=== PATIENT | female | born 1965 | race Caucasian/White ===

== ENCOUNTER 2017-04-18 10:00 | Outpatient (RCR) | payer BC, SELFPAY ==
--- NOTE | 2017-03-04 13:35 | HP.PTEVAL_ITS ---
Patient's Visit Information JOCELIN BEAN is a 52 year old F referred to Physical Therapy by MD YOBANI Mclaughlin with a diagnosis of B shoulder strain.. Date of Evaluation: 03/04/17 Physical Therapist: PETTY MontemayorT, OC - Visit Plan Frequency: 3x /Week Duration: 2-4 Weeks Plan: 3x/week for 2-4 weeks for... 1. STM to post shoulders and cervical mm. 2. postural and cervical strength adn shoulder strength and end range of motion. 3. Monitor tolerance to increasing c/s ext as it effects shoulder elevation, L rotation adn shoulder pain. MH as needed to neck. - Subjective Subjective: Slipped in snow over a month ago and face planted with something in her arms. Shoulders have been bothering her since. Pain is L lateral adn R superior posterior. L>R. Sleep is interrupted as she cannot lie on L side due to pain. Neck gets stiff also. Cleaning houses which aggravates it. Basic aDLs are OK it is just like a toothache. Hurts her to drive. Dressing can be painful but i do it Reaching up or out and mopping. - Pain L shoulder pain lateral Pain Intensity (Out of 10): 2 Pain Intensity Range: 2, 7 R shouldr Pain Intensity (Out of 10): 2 Pain Intensity Range: 2, 7 - Objective Posture is forward head and prtotracted adn elevated scapula. UE AROM WNL , end range L shoulder flexion pain at 120 and slow. S/C aROM is 70 ext with pain end range, R rot 75, L rot 65 and pinch at end in L scap. reflexes bi and tri 2/3. sensation UE WNL to gross light touch. Strength UE 4/5 except flexion painful B at 4-/5. c/s compression + with L rotation also. - ext rot lag test, - HK and neer impingement. - labral test. B shoulders. Tender in UT and post delt mildly B. no point tenderness to RC tissues or joint line structures in either shoulder. Repeated ret NE. repeated c/s ext improves L UE arm elevation. repeated L c/s rot with OP... NE. - Goals Goal 1:: Full c/s and UE AROM without pain Goal Time Frame: 2-4 Weeks Goal 2:: Pt feel pain is 1/10 at worst and only in neck Goal Time Frame: 2-4 Weeks Goal 3:: Pt feel 90% better as before her fall Goal Time Frame: 2-4 Weeks Goal 4:: Work and get dressed without noticing shoulder pain. Goal Time Frame: 2-4 Weeks Goal 5:: Sleep without waking when rolling on L side Goal Time Frame: 2-4 Weeks - Rehabilitation Potential Physical Therapy Diagnosis: c/s derangement vs shoulder strain. Rehabilitation Potential: Fair - Anticipated Interventions Patient/Client Instruction: Educate patient on: Condition, Plan of Care For the Purpose of:: To decrease pain, To increase ROM, To improve nutrient delivery to tissue, To increase oxygenation perfusion, To improve muscle performance and motor function Therapeutic Exercise to Include: Strength training, Flexibilty training, Passive ROM, Active ROM, Natali Exercises For the Purpose of:: To decrease pain, To increase ROM, To improve nutrient delivery to tissue, To improve muscle performance and motor function, To improve ability of physical actions for home/community/work/leisure Manual Therapy Techniques to Include: Soft tissue mobilization Comment: c/s For the Purpose of:: To decrease pain, To increase ROM Thermo therapy (hot pack): Yes For the Purpose of:: To improve nutrient delivery to tissue Thank you for the opportunity to evaluate your patient. For Medicare and Medicare HMO plans, please review the plan of care and approve it. It will need to be FAXED BACK to us at [phone] for Medicare purposes. Please let me know if there are questions or concerns regarding this plan of care. Physician Signature: Date:
--- NOTE | 2017-04-18 10:27 | HP.PTDCSUM_ITS ---
HP - PT D/C Summary It has been my pleasure to treat JOCELIN BEAN under orders from Jessenia Mendoza MD, for the diagnosis of B shoulder strain. for a total of 7 visit(s) . Discharge Date: 04/18/17 Please see the following information for a summary of their discharge status. - Subjective Subjective: Don't notice shoulder as bothering her as much. Last pain was last week. Started new ex. Sleep is OK, may wake up if lies on L side. Activities at home and work. No f/u scheduled with Dr. Meza. - Pain L shoulder pain lateral Pain Intensity (Out of 10): 0 R shouldr Pain Intensity (Out of 10): 0 c-spine Pain Intensity (Out of 10): 0 - Overall Improvement % Improvement: 90 - Objective Objective/Function: Full aROM, strength 4+/5 B shoulder without pain. Some discomfort at end range of IR improved after stretching. OVERALL DOING EXCELLENT AND WILL CONTINUE VIA HEP - Goals Goal 1:: Full c/s and UE AROM without pain Goal 2:: Pt feel pain is 1/10 at worst and only in neck Goal Progress: Progressing Goal 3:: Pt feel 90% better as before her fall Goal Progress: Goal Met Goal 4:: Work and get dressed without noticing shoulder pain. Goal Progress: Progressing Goal 5:: Sleep without waking when rolling on L side Goal Progress: Progressing - Plan Plan: d/c TO hep - D/C Information Discharge Comments: Pt working nicely toward goals and will continue via HEP. Will contact doctor if condition does not continue to improve. If there are questions or concerns regarding this patient's physical therapy, please feel free to call me at [phone]. Thank you for the referral of this patient. Sincerely, Luke Mcpherson, DPT, OC
== END 2017-04-18 19:00 | disposition home or self-care (01) ==
LOC: PT 10:00
PROVIDERS: Family Provider Family Medicine; PCP Family Medicine; Visit Provider Family Medicine
DX: S46.912D Strain of unspecified muscle, fascia and tendon at shoulder and upper arm level, left arm, subsequent encounter (principal); S46.911D Strain of unspecified muscle, fascia and tendon at shoulder and upper arm level, right arm, subsequent encounter
CPT/HCPCS: 97110; 97140; 97162; 97530

== ENCOUNTER → 2017-05-25 10:37 | Outpatient (CLI) | payer BC, SELFPAY ==
[2017-05-31 12:19] LABS: HPV Reflexed? NOT INDICATED
== END ==
PROVIDERS: Visit Provider Obstetrics & Gynecology
DX: Z01.419 Encounter for gynecological examination (general) (routine) without abnormal findings (principal)
CPT/HCPCS: 88175; G0145

== ENCOUNTER → 2017-08-01 10:04 | Outpatient (CLI) | payer BC, SELFPAY ==
[2017-08-01 12:27] LABS: Absolute Lymphocyte Count 1.62 X10^3/ul (0.83-4.51); Absolute Neutrophil Count 3.3 X10^3/uL (2.0-7.7); Basophil# 0.03 X10^3/uL; Basophil% 0.5 % (0-1); Eosinophil# 0.17 X10^3/uL; Hematocrit 41.5 % (37-47); Hemoglobin 13.7 g/dl (12.0-15.0); Lymphocyte # 1.62 X10^3/ul (4.0); Lymphocyte % 28.2 % (19-41); Mean Corpuscular Hgb 29.3 pg (27.0-32.0); Mean Corpuscular Volume 88.9 fL (81-99); Mean Platelet Vol. 8.8 fl (6.2-12.0); Monocyte# 0.65 X10^3/uL; Monocyte% 11.3 % (0-10); Neutrophil # 3.25 X10^3/uL (2.7-7.7); Neutrophil % 56.7 % (47-70); Platelet Count 287 K/mm3 (150-450); RBC Distribution Width CV 12.1 % (11.6-14.6); RBC Distribution Width SD 38.8 fl (35.1-43.9); Red Blood Count 4.67 M/mm3 (4.2-5.4); White Blood Count 5.7 K/mm3 (4.4-11.0)
[2017-08-01 12:33] LABS: POSITIVE COUNT NO; POSITIVE DIFFERENTIAL NO; POSITIVE MORPHOLOGY NO
[2017-08-01 12:41] LABS: AST(SGOT) 18 U/L (15-37); Alanine Aminotransfer ALT/SGPT 24 U/L (13-56); Albumin, Serum 3.6 g/dL (3.2-5.0); Alkaline Phosphatase 76 U/L (45-117); Anion Gap 7 (5-15); BUN 12 mg/dL (7-18); BUN/Creat Ratio 15.2 RATIO (10-20); Calcium,Total 8.9 mg/dL (8.5-10.1); Chloride 105 mmol/L (98-107); Creatinine, Serum 0.79 mg/dL (0.55-1.02); EST Glomerular Filtration Rate 81 mL/min (>60); Est Glom Filt Rate - Afr Amer 99 mL/min (>60); Globulin 3.7 g/dL (2.2-4.2); Glucose 97 mg/dL (74-106); Potassium 3.6 mmol/L (3.5-5.1); Protein, Total 7.3 g/dL (6.4-8.2); Sodium Level 143 mmol/L (136-145); Thyroid Stim Hormone (TSH) 2.58 uIU/mL (0.358-3.74)
== END ==
PROVIDERS: Family Provider Family Medicine; PCP Family Medicine; Visit Provider Family Medicine
DX: E83.42 Hypomagnesemia (principal); R53.83 Other fatigue
CPT/HCPCS: 36415; 80053; 83735; 84443; 85025

== ENCOUNTER → 2017-09-13 16:39 | Outpatient (CLI) | payer OTHER, SELFPAY ==
--- NOTE | 2017-09-13 16:42 | CT_ITS ---
STUDY: CT ABDOMEN AND PELVIS WITH CONTRAST REASON FOR EXAM: Female, 52 years old. Right-sided abdominal pain RADIATION DOSAGE (If Supplied By Facility): CTDIvol = ( 14.64 ) mGy, DLP = ( 922.13 ) mGycm TECHNIQUE: Transaxial images were obtained from the dome of the diaphragm to the symphysis pubis with oral contrast. 100mL ml of Isovue 300 contrast was administered. Sagittal and coronal images were reconstructed. Individualized dose optimization techniques were used for this CT. COMPARISON: None. FINDINGS: The visualized lung bases are unremarkable. The visualized portions of the heart are within normal limits. Hypoattenuated lesions are scattered throughout the liver. Gallbladder surgically absent. No biliary duct dilatation. Normal spleen. Normal pancreas. Normal bilateral adrenal glands. 2 mm calculus in the mid right renal pelvis. No hydronephrosis.. Normal left kidney. Normal bilateral ureters. Normal visualized stomach. Normal small intestine. Normal colon. The appendix is visualized and appears normal. Normal abdominal aorta. Normal inferior vena cava. Normal retroperitoneum. Normal urinary bladder. Calcified fibroids within the posterior fundus of the uterus. Bilateral adnexa are normal. Small fat-containing umbilical hernia. Mild to moderate multilevel degenerative change of the spine. CT/Abdomen/Pelvis WITH Contrast IMPRESSION: 1. Myomatous uterus. 2. Nonobstructing 2 mm mid right renal calculus. 3. Small fat-containing umbilical hernia. 4. Cysts versus hemangiomas scattered throughout the liver. Electronically Signed: Ino Cheney MD at 4:03 EDT Tel , Service support ,
== END ==
PROVIDERS: Family Provider Family Medicine; PCP Family Medicine; Visit Provider Family Medicine
DX: N20.0 Calculus of kidney (principal); K42.9 Umbilical hernia without obstruction or gangrene
CPT/HCPCS: 74177; Q9967

== ENCOUNTER → 2017-09-16 14:15 | Outpatient (CLI) | payer OTHER, SELFPAY ==
--- NOTE | 2017-09-16 14:18 | BI_ITS ---
MAMMOGRAPHY - BILATERAL SCREENING 3-D IRIS SYNTHESIS REASON FOR EXAM: Female, 52 years old. Bilateral Screening 3-D tomosynthesis PERTINENT HISTORY: Family breast carcinoma, paternal grandmother and aunt. TECHNIQUE: 2-D mammograms and 3-D Iris synthesis of the breast (s) were performed. CAD was performed. COMPARISON: 09/06/2016 through 11/06/2013. FINDINGS: The breast composition is composed of scattered fibroglandular density. No new significant architectural distortion, asymmetric density, abnormal microcalcification cluster, dominant mass, adenopathy, skin thickening or nipple retraction identified. Coarse benign-appearing calcifications. No significant abnormality identified with tomosynthesis. BI/SCREENING MAMM (CAD), BILAT IMPRESSION: No mammographic sign of malignancy. Routine yearly mammograms recommended. ASSESSMENT CATEGORY: BIRADS Category 2: Benign. A letter regarding these results will be sent to the patient by the facility within 30 days. FOLLOW UP RECOMMENDATION: Yearly follow up mammogram recommended. (A) Negative results should not deter biopsy as a palpable lesion if present should be followed on clinical grounds and biopsy performed if clinically persistent for 3 months or increasing size. Approximately 10% of breast cancers are not detected by mammography. A normal mammogram should not delay biopsy of a clinically suspicious abnormality. Electronically Signed: Mark Antony, at 21:44 EDT Tel , Service support ,
== END ==
PROVIDERS: Family Provider Family Medicine; PCP Family Medicine; Visit Provider Obstetrics & Gynecology
DX: Z12.31 Encounter for screening mammogram for malignant neoplasm of breast (principal)
CPT/HCPCS: 77063; 77067

== ENCOUNTER → 2018-07-12 11:06 | Outpatient (CLI) | payer OTHER, SELFPAY ==
[2018-07-18 09:36] LABS: HPV Reflexed? NOT INDICATED
== END ==
PROVIDERS: Visit Provider Obstetrics & Gynecology
DX: Z12.4 Encounter for screening for malignant neoplasm of cervix (principal)
CPT/HCPCS: 88175; G0145

== ENCOUNTER → 2019-01-01 13:50 | Outpatient (CLI) | payer OTHER, SELFPAY ==
--- NOTE | 2019-01-01 13:55 | RAD_ITS ---
STUDY: X-RAY - LEFT KNEE REASON FOR EXAM: Female, 53 years old. Pain. TECHNIQUE: 4 view(s) of the knee. COMPARISON: None. FINDINGS: Normal visualized distal femur. Normal visualized proximal tibia and fibula. Normal proximal tibiofibular articulation. There is no demonstrated fracture. Normal medial femorotibial compartment. Normal lateral femorotibial compartment. Normal patellofemoral articulation. There is no demonstrated joint effusion. The soft tissue structures are unremarkable. RAD/Knee 4 or More Views IMPRESSION: Normal x-ray examination of the knee. Electronically Signed: Meri Carrero MD at 2:31 EST , Service support ,
== END ==
PROVIDERS: Family Provider Family Medicine; PCP Family Medicine; Referring Provider Family Medicine; Visit Provider Family Medicine
DX: M25.562 Pain in left knee (principal)
CPT/HCPCS: 73564

== ENCOUNTER 2019-07-31 16:12 | Emergency (ER) | payer OTHER, SELFPAY ==
[2019-07-31 16:13] VITALS: BP 158/81; PULSE 83; RESP 11; TEMP 37.1; O2SAT 99; BMI 32.4
[2019-07-31 16:17] VITALS: BP 158/81; PULSE 80; RESP 13; O2SAT 98
--- NOTE | 2019-07-31 16:35 | EKG12_ITS ---
Test Reason : SYNCOPE Blood Pressure : / mmHG Vent. Rate : 079 BPM Atrial Rate : 079 BPM P-R Int : 148 ms QRS Dur : 090 ms QT Int : 354 ms P-R-T Axes : 005 036 011 degrees QTc Int : 405 ms Normal sinus rhythm Normal ECG Confirmed by ABEL CHANG, JONES ([id number]), senior editor ODELL BEAN ([id number]) on 08/03/2019 11:08:37 AM Referred By: MIKE Confirmed By:JONES ROMAN MD
--- NOTE | 2019-07-31 16:36 | ED.VIS.GEN ---
History of Present Illness Chief Complaint: Syncope Informant: Patient Onset: Today Context: Sudden Onset Narrative: Is a 54-year-old female that denies any significant past medical history presenting after an episode of lightheadedness, nausea, sweating and chest tightness. Patient states she was watching her 4 grandchildren outside and sitting in the shade. She been outside for approximately 1 hour. She went to unbuckle her youngest grandchild from the stroller so that she could change a diaper when she suddenly felt very lightheaded and felt like she would fall. She started sweating having nausea, shortness of breath, chest tightness and tingling all over her body. She went inside. The episode lasted for 15 to 20 minutes. She states she still feels nauseous and does not feel quite right as well as weak. Patient states she felt fine earlier today. She did wake up at 4:30 AM so she was a little tired today but nothing unusual. She states she is never had any like this before. She denies any family history of cardiac disease especially at a young age. She denies any other complaints at this time. She currently denies any chest tightness. Prior similar symptoms: No Past Medical History - Allergies and Home Meds Allergies/Adverse Reactions: Allergies prednisone Allergy (Verified 07/31/19 16:13) Other shellfish derived Allergy (Verified 07/31/19 16:13) Itching Primary Care Physician: Luke Meza MD [Primary Care Provider] - Past Medical History: - - Anxiety Surgical History: no surgical history Lives: With Family Smoking Status: Former smoker Alcohol: None Drugs: None Review of Systems General: Reports: Malaise, Sweats, - - Lightheaded. Denies: Chills, Fever Eyes: Denies: Visual changes - bilaterally, Diplopia ENT: Denies: Rhinorrhea, Sore throat Cardiovascular: Reports: Chest pain. Denies: Palpitations Respiratory: Denies: Dyspnea, Cough, Dyspnea on exertion Gastrointestinal: Reports: Nausea. Denies: Abdominal pain, Vomiting, Diarrhea, Melena, Hematochezia Genitourinary: Denies: Dysuria, Hematuria, Frequency Musculoskeletal: Denies: Back pain, Extremity Pain Skin: Denies: Rash, Wounds Neurological: Reports: - - Tingling all over. Denies: Headache, Weakness, Numbness Physical Exam Vital Signs/Narrative: Vital Signs Temp Pulse Resp BP Pulse Ox 07/31/19 16:17 80 13 158/81 H 98 07/31/19 16:13 98.7 F 83 11 L 158/81 H 99 Inital Vital Signs reviewed: Yes General: Well nourished, Well developed, No Acute Distress Head: Normocephalic, Atraumatic Eyes: Perrl, EOMI ENT: Moist mucous membranes, No rhinorrhea Neck: Supple, Nontender, No JVD Cardiovascular: Regular rate, Regular rhythm, No murmurs Respiratory: No distress, CTA bilaterally, Chest nontender. Negative for: Diminished, Decreased Air Movement Abdomen: Soft, Nontender, Nondistended, Normal bowel sounds. Negative for: Guarding, Rebound tenderness Back: Nontender, Normal Inspection Extremities: Nontender, No edema Skin: Normal color, No rash Neurological: Alert, Oriented x3, Cranial nerves II-XII grossly intact, Normal Strength, Normal Sensation Psychological: Normal affect, Normal Mood Diagnostic/Tx/Re-eval Chest X-Ray - ED: 2 View, Read by ED Physician, Read by Radiologist, No Acute Disease Clinical Impression(s) from Imaging Studies Chest X-Ray 07/31/19 18:20 IMPRESSION: No acute thoracic pathology. Electronically Signed: Gabriel Piña, at 18:41 EDT Tel , Service support , Laboratory Data 07/31/19 07/31/19 07/31/19 16:15 16:15 17:47 WBC 7.7 RBC 4.99 Hgb 14.8 Hct 45.3 MCV 90.8 MCH 29.7 MCHC 32.7 RDW Std Deviation 40.1 RDW Coeff of Rosalba 12.2 Plt Count 359 MPV 8.7 Immature Gran % (Auto) 0.600 Neut % (Auto) 44.9 L Lymph % (Auto) 38.5 [place] % (Auto) 11.3 H Eos % (Auto) 3.8 Baso % (Auto) 0.9 Absolute Neuts (auto) 3.5 Absolute Lymphs (auto) 2.97 Nucleated RBC % 0 Sodium 142 Potassium 3.8 Chloride 105 Carbon Dioxide 31.0 Anion Gap 6 BUN 12 Creatinine 0.77 Estim Creat Clear Calc 66.06 Est GFR (MDRD) Af Amer 100 Est GFR (MDRD) Non-Af 83 BUN/Creatinine Ratio 15.6 Glucose 104 Calcium 9.7 Total Bilirubin 0.30 AST 32 ALT 42 Alkaline Phosphatase 94 Troponin I < 0.015 Total Protein 8.3 H Albumin 4.2 Globulin 4.1 Albumin/Globulin Ratio 1.0 Lipase 204 Urine Color Yellow Urine Clarity Sl. Cloudy Urine pH 6.0 Ur Specific [place] 1.020 Urine Protein Negative Urine Glucose (UA) Normal Urine Ketones Negative Urine Occult Blood Negative Urine Nitrite Negative Urine Bilirubin Negative Urine Urobilinogen Normal Ur Leukocyte Esterase 100 H Urine RBC 0 SEEN Urine WBC 0-5 SEEN Ur Squamous Epith Cells 0-5 SEEN Urine Bacteria 0 SEEN Urine Mucus 0 SEEN 07/31/19 19:26 WBC RBC Hgb Hct MCV MCH MCHC RDW Std Deviation RDW Coeff of [place] Plt Count MPV Immature Gran % (Auto) Neut % (Auto) Lymph % (Auto) [place] % (Auto) Eos % (Auto) Baso % (Auto) Absolute Neuts (auto) Absolute Lymphs (auto) Nucleated RBC % Sodium Potassium Chloride Carbon Dioxide Anion Gap BUN Creatinine Estim Creat Clear Calc Est GFR (MDRD) Af Amer Est GFR (MDRD) Non-Af BUN/Creatinine Ratio Glucose Calcium Total Bilirubin AST ALT Alkaline Phosphatase Troponin I < 0.015 Total Protein Albumin Globulin Albumin/Globulin Ratio Lipase Urine Color Urine Clarity Urine pH Ur Specific [place] Urine Protein Urine Glucose (UA) Urine Ketones Urine Occult Blood Urine Nitrite Urine Bilirubin Urine Urobilinogen Ur Leukocyte Esterase Urine RBC Urine WBC Ur Squamous Epith Cells Urine Bacteria Urine Mucus - Rhythm Strip Rhythm Strip: Sinus Rhythm Rate: 79 Ectopy: None - EKG Initial EKG Interpretation: Sinus Rhythm, - - Sinus rhythm at a rate of 79 pain And normal intervals Normal axis Normal ST segments Follow-up EKG Interpretation: Sinus Rhythm, - - Normal sinus rhythm at a rate of 69 Normal intervals and axis No changes compared to prior EKG - Medical Decision Making Patient is evaluated after an episode of lightheadedness, chest pain, shortness of breath and feeling like she would pass out. Patient appears nontoxic in no acute distress. Her vital signs are very normal and stable in the emergency room. Patient is low risk per the heart score. Her heart score is 1. She not have any EKG abnormalities. Her troponin is negative x2. No other acute abnormalities are found. Patient states she has had stress test as well as Holter monitor in the past as she does get very anxious about any of these types of episodes. Patient is given Zofran and fluids in the emergency room and does have improvement of her symptoms. It is possible that this could have been a vasovagal episode and patient could have a component of dehydration. She does admit she did not drink any water today and has been outside a lot the past few days. Patient is encouraged to follow-up with her primary care doctor. I do not think she requires admission at this time and I think she is stable for outpatient follow-up. Patient is counseled on signs and symptoms requiring return to the emergency room. Patient verbalizes agreement and understand this plan. Patient discharged home in stable and improved condition. ED Disposition - Plan for ED Patient: Disposition: Home or Assisted Living Diagnosis: Chest pain, Pre-syncope Instructions: ED Chest Pain Atypical Unkn Cause, ED Near-Fainting Uncertain Cause Referrals: Luke Meza MD [Primary Care Provider] - Additional Instructions: The exact cause of your episode today is not clear however your cardiac work-up is normal. You have normal electrolytes no signs of infection. I believe you are stable to follow-up with your primary care doctor.
[2019-07-31] MEDS: Ondansetron 4 MG/2 ML Vial IV (17:44)
[2019-07-31] MEDS: 0.9% Normal Saline 1,000 ML 1000 ML IV (17:44)
[2019-07-31 17:52] LABS: Bacteria 0 SEEN /hpf (None Seen); Mucous, Urine 0 SEEN /hpf (<or=2+); Red Blood Cells-Urine 0 SEEN /hpf (0-5)
[2019-07-31 17:55] LABS: Color, Urine Yellow (Yellow); Glucose, Dipstick Normal (Normal); Ketone-Dipstick Negative (Negative); Leukocyte Esterase-Dipstick 100 /ul (Negative); Nitrite-Dipstick Negative (Negative); Occult Blood-Urine Negative /ul (Negative); Protein-Dipstick Negative (Negative); Urine Bilirubin Dipstick Negative (Negative); Urine Clarity Sl. Cloudy (Clear); Urine Urobilinogen Normal (Normal)
[2019-07-31 18:11] LABS: Squamous Epithelial Cells - UA 0-5 SEEN /hpf (5-10); White Blood Cells 0-5 SEEN /hpf (0-5)
[2019-07-31 18:15] LABS: AST(SGOT) 32 U/L (15-37); Alanine Aminotransfer ALT/SGPT 42 U/L (13-56); Albumin, Serum 4.2 g/dL (3.2-5.0); Alkaline Phosphatase 94 U/L (45-117); Anion Gap 6 (5-15); BUN 12 mg/dL (7-18); BUN/Creat Ratio 15.6 RATIO (10-20); Calcium,Total 9.7 mg/dL (8.5-10.1); Chloride 105 mmol/L (98-107); Creatinine, Serum 0.77 mg/dL (0.55-1.02); EST Glomerular Filtration Rate 83 mL/min (>60); Est Glom Filt Rate - Afr Amer 100 mL/min (>60); Estimated Creatinine Clearance 66.06 ml/min; Globulin 4.1 g/dL (2.2-4.2); Glucose 104 mg/dL (74-106); Lipase 204 U/L (73-393); Potassium 3.8 mmol/L (3.5-5.1); Protein, Total 8.3 g/dL (6.4-8.2); Sodium Level 142 mmol/L (136-145)
--- NOTE | 2019-07-31 18:20 | RAD_ITS ---
STUDY: X-RAY CHEST REASON FOR EXAM: Female, 54 years old. Syncope TECHNIQUE: Frontal and lateral views of the chest COMPARISON: 05/20/2016 FINDINGS: The lungs are clear. There are no pleural effusions. There is no pneumothorax. The heart is normal in size. The visualized osseous structures are within normal limits. RAD/Chest PA and Lateral IMPRESSION: No acute thoracic pathology. Electronically Signed: Gabriel Piña, at 18:41 EDT Tel , Service support ,
[2019-07-31 18:22] LABS: Absolute Lymphocyte Count 2.97 X10^3/uL (0.83-4.51); Absolute Neutrophil Count 3.5 X10^3/uL (2.0-7.7); Basophil# 0.07 X10^3/uL; Basophil% 0.9 % (0-1); Eosinophil# 0.29 X10^3/uL; Eosinophils% 3.8 % (0-5); Hematocrit 45.3 % (37-47); Hemoglobin 14.8 g/dL (12.0-15.0); Lymphocyte # 2.97 X10^3/ul (4.0); Lymphocyte % 38.5 % (19-41); Mean Corp Hgb Conc 32.7 g/dL (32-36); Mean Corpuscular Hgb 29.7 pg (27.0-32.0); Mean Corpuscular Volume 90.8 fL (81-99); Mean Platelet Vol. 8.7 fl (6.2-12.0); Monocyte# 0.87 X10^3/uL; Monocyte% 11.3 % (0-10); NRBC Flagged by Analyzer 0 % (0-5); Neutrophil # 3.46 X10^3/uL (2.7-7.7); Neutrophil % 44.9 % (47-70); Platelet Count 359 K/mm3 (150-450); RBC Distribution Width CV 12.2 % (11.6-14.6); RBC Distribution Width SD 40.1 fl (35.1-43.9); Red Blood Count 4.99 M/mm3 (4.2-5.4); White Blood Count 7.7 K/mm3 (4.4-11.0)
--- NOTE | 2019-07-31 19:20 | EKG12_ITS ---
Test Reason : Blood Pressure : / mmHG Vent. Rate : 069 BPM Atrial Rate : 069 BPM P-R Int : 146 ms QRS Dur : 088 ms QT Int : 364 ms P-R-T Axes : 011 032 008 degrees QTc Int : 390 ms Normal sinus rhythm Normal ECG Confirmed by ABEL CHANG, JONES ([id number]), slot editor ODELL BEAN ([id number]) on 08/03/2019 11:08:50 AM Referred By: ALTA Confirmed By:JONES ROMAN MD
[2019-07-31 19:31] VITALS: BP 118/62; BP 131/74; BP 137/77; PULSE 84; PULSE 85; PULSE 88
[2019-07-31 20:47] VITALS: BP 131/74; PULSE 86; RESP 13; O2SAT 95
== END 2019-07-31 20:48 | disposition home or self-care (01) ==
PROVIDERS: Emergency Provider Emergency Medicine; PCP Family Medicine
DX: R55 Syncope and collapse (principal); R07.9 Chest pain, unspecified; Z87.891 Personal history of nicotine dependence
CPT/HCPCS: 71046; 80053; 81001; 83690; 84484; 85025; 93005; 96361; 96374; 99285; J7030; A4216; J2405

== ENCOUNTER → 2019-08-07 12:07 | Outpatient (CLI) | payer OTHER, SELFPAY ==
[2019-07-31 16:13] VITALS: BMI 32.4
[2019-08-07 12:12] LABS: Lyme Ab Screen Interpretation REF LAB
[2019-08-07 15:42] LABS: Erythrocyte Sedimentation Rate 20 mm/hr (0-30)
[2019-08-07 15:46] LABS: Hemoglobin A1c 5.7 % (3.8-5.6)
[2019-08-07 16:23] LABS: CRP 5.46 mg/L (0.0-3.0); Ferritin 105 ng/mL (8-252); Iron Binding Capacity,Total 378 ug/dL (250-450); Rheumatoid Factor < 10.0 IU/mL (<15)
[2019-08-10 00:42] LABS: ANTINUCLEAR ANTIBODIES DIRECT Negative (Negative)
[2019-08-10 00:46] LABS: Lyme Scn Total Ab w/Rflx <0.91 ISR (0.00-0.90)
== END ==
PROVIDERS: PCP Family Medicine; Referring Provider Family Medicine; Visit Provider Family Medicine
DX: G25.81 Restless legs syndrome (principal); M25.50 Pain in unspecified joint
CPT/HCPCS: 36415; 82306; 82728; 82746; 83036; 83550; 85652; 86038; 86140; 86431; 86618

== ENCOUNTER → 2019-11-05 07:52 | Outpatient (CLI) | payer OTHER, SELFPAY ==
--- NOTE | 2019-11-05 07:55 | BI_ITS ---
MAMMOGRAPHY - BILATERAL SCREENING REASON FOR EXAM: Female, 54 years old. Routine annual screening examination. PERTINENT HISTORY: Non-contributory. TECHNIQUE: Digital bilateral breast iris (3D mammographic acquisition) in the CC and MLO projections. 2-D mediolateral oblique (MLO) and craniocaudad (CC) views of both breasts were obtained. CAD: Full Field Digital Mammography with Computer Added Detection was performed. COMPARISON: Comparison is made with prior study dated 09/16/2017 and 09/06/2016. FINDINGS: Breast Composition: There are scattered areas of fibroglandular density. There are no dominant masses or suspicious calcifications. Stable benign-appearing bilateral axillary lymph nodes. No other significant abnormalities are identified. There has been no significant change since the prior study. BI/SCREEN MAMM (CAD) W/IRIS BILAT IMPRESSION: Stable bilateral screening mammogram. Yearly follow-up mammogram recommended. (A) ASSESSMENT CATEGORY: BIRADS Category 2: Benign. A letter regarding these results will be sent to the patient by the facility within 30 days. Approximately 10% of breast cancers are not detected by mammography. A normal mammogram should not delay biopsy of a clinically suspicious abnormality. [id number] Electronically Signed: Rolly Gold, at 9:22 EDT , Service support ,
== END ==
PROVIDERS: PCP Family Medicine; Referring Provider Obstetrics & Gynecology; Visit Provider Obstetrics & Gynecology
DX: Z12.31 Encounter for screening mammogram for malignant neoplasm of breast (principal)
CPT/HCPCS: 77063; 77067

== ENCOUNTER → 2019-12-10 17:22 | Outpatient (CLI) | payer OTHER, SELFPAY | PROVIDERS: PCP Family Medicine; Visit Provider Nurse Practitioner Family | DX: R05 Cough (principal) | CPT/HCPCS: 87633; 87635; U0003 ==

== ENCOUNTER 2020-05-05 09:18 | Emergency (ER) | payer OTHER, SELFPAY ==
[2020-05-05 09:21] VITALS: BP 195/68; PULSE 93; RESP 16; TEMP 36.2; O2SAT 98; BMI 31.1
--- NOTE | 2020-05-05 09:34 | RAD_ITS ---
STUDY: X-RAY - PELVIS REASON FOR EXAM: Female, 55 years old. Injury/Pain TECHNIQUE: One view of the pelvis was obtained. COMPARISON: None. FINDINGS: There is a non-specific bowel gas pattern. Calcified fibroid uterus. Normal bilateral iliac wings, sacroiliac joints and visualized sacrum. Normal visualized bilateral superior and inferior pubic rami. Normal pubic symphysis. Normal ischial tuberosities. Normal visualized right femoral head. Normal right acetabulum. Normal right hip joint. Normal visualized left femoral head. Normal left acetabulum. Normal left hip joint. RAD/Pelvis 1 or 2 Views IMPRESSION: Calcified fibroid uterus. Electronically Signed: Rolly Gold MD at 10:25 EDT , Service support ,
--- NOTE | 2020-05-05 09:34 | RAD_ITS ---
STUDY: X-RAY - LEFT FEMUR REASON FOR STUDY: Female, 55 years old. Injury/Pain TECHNIQUE: 4 view(s) of the femur. COMPARISON: None. FINDINGS: Normal visualized femur. Normal visualized soft tissue structure. RAD/Femur Min 2 Views IMPRESSION: Normal x-ray examination of the femur. Electronically Signed: Rolly Gold MD at 10:25 EDT , Service support ,
--- NOTE | 2020-05-05 09:43 | ED.VISSUMM ---
- ER Visit Summary Date of Service: 05/05/20 Chief Complaint: Left thigh pain History of Present Illness: The patient is a [address] Luke Meza. She reports that she was working and her left leg slipped laterally and she heard a pop in the posterior left thigh. States that since that time she has had a dull, aching, burning pain that is 7-10 in severity. Is worsened by sitting or walking. Is relieved by standing. She reports that his leg does feel somewhat weak. She denies any paresthesias. She denies any back pain. She denies any other injuries. She is never had anything like this before. Physical Examination: Vitals: Stable. Afebrile. Neck: No vertebral tenderness. Full ROM without difficulty. Cleared by NEXUS criteria. Back: No vertebral tenderness. General: A&O x 3. NAD. Cardiovascular exam: Regular rate and rhythm, no murmur, rub or gallop. Respiratory exam: Chest nontender. No crepitus. Clear to auscultation bilaterally. No wheezes or stridor. Abdominal exam: Soft, nontender, nondistended, normal bowel sounds. No pain in RUQ or LUQ specifically. No peritoneal signs. Extremity: Moderate tenderness to palpation just distal to the gluteal fold on the left posteriorly. There is no pain over the greater trochanter. No pain with internal or external rotation of her leg. No tenderness palpation over the distal femur or knee. She is neurovascular intact distal this. Test Results: Clinical Impression(s) from Imaging Studies Femur X-Ray 05/05/20 09:34 IMPRESSION: Normal x-ray examination of the femur. Electronically Signed: Rolly Gold MD at 10:25 EDT , Service support , Pelvis X-Ray 05/05/20 09:34 IMPRESSION: Calcified fibroid uterus. Electronically Signed: Rolly Gold MD at 10:25 EDT , Service support , Emergency Department Course and Treatment: Patient was given ibuprofen. She is resting comfortably. Patient refused crutches. Treatment Plan: Patient will be discharged with symptomatic care. Instructed to alternate heat and ice. Use Tylenol and ibuprofen mainly for pain. She is given prescription for 12 Percocet and senna. Follow-up with her primary care physician in 3 to 5 days if not improving. Return to the emergency department for any worsening symptoms. Disposition: To home in improved and stable condition. Impression: 1. Left thigh pain, acute. This note was generated with [employer] dictation software. It may contain incorrect words, spelling, and punctuation that were not noted in review of the chart prior to signing ED Disposition - Plan for ED Patient: Instructions: ED Muscle Strain, Extremity Prescriptions: Oxycodone HCl/Acetaminophen [Percocet 5/325] 1 tablet PO Q6H PRN PRN 3 Days #12 tab PRN Reason: Pain Transmission Status: Received by [id number] Sennosides [Senna] 8.6 mg PO QHS #10 tablet Prescription Printed Referrals: Luke Meza MD [Primary Care Provider] - 3-5 Days if not improving
[2020-05-05] MEDS: Ibuprofen 600 MG Tablet PO (09:56)
[2020-05-05 11:07] VITALS: RESP 17
== END 2020-05-05 11:07 | disposition home or self-care (01) ==
LOC: ED 10:13
PROVIDERS: Emergency Provider Emergency Medicine; PCP Family Medicine
DX: M79.652 Pain in left thigh (principal); Z72.0 Tobacco use
CPT/HCPCS: 72170; 73552; 99283

== ENCOUNTER → 2020-06-16 15:50 | Outpatient (CLI) | payer OTHER, SELFPAY ==
[2020-06-16 17:33] LABS: Absolute Lymphocyte Count 2.45 X10^3/uL (0.83-4.51); Absolute Neutrophil Count 4.1 X10^3/uL (2.0-7.7); Basophil# 0.06 X10^3/uL; Basophil% 0.8 % (0-1); Eosinophil# 0.28 X10^3/uL; Eosinophils% 3.7 % (0-5); Hematocrit 44.1 % (37-47); Hemoglobin 14.4 g/dL (12.0-15.0); Lymphocyte # 2.45 X10^3/ul (0.83-4.51); Lymphocyte % 32.2 % (19-41); Mean Corp Hgb Conc 32.7 g/dL (32-36); Mean Corpuscular Hgb 29.1 pg (27.0-32.0); Mean Corpuscular Volume 89.1 fL (81-99); Mean Platelet Vol. 8.4 fl (6.2-12.0); Monocyte# 0.68 X10^3/uL; Monocyte% 8.9 % (0-10); NRBC Flagged by Analyzer 0 % (0-5); Neutrophil # 4.11 X10^3/uL (2.7-7.7); Platelet Count 340 K/mm3 (150-450); RBC Distribution Width CV 12.3 % (11.6-14.6); RBC Distribution Width SD 40.7 fl (35.1-43.9); Red Blood Count 4.95 M/mm3 (4.2-5.4); White Blood Count 7.6 K/mm3 (4.4-11.0)
[2020-06-16 18:04] LABS: ALB/GLOB Ratio 1.1 RATIO (0.9-2.4); AST(SGOT) 25 U/L (15-37); Alanine Aminotransfer ALT/SGPT 31 U/L (13-56); Albumin, Serum 3.9 g/dL (3.2-5.0); Alkaline Phosphatase 99 U/L (45-117); Anion Gap 5 (5-15); BUN 11 mg/dL (7-18); BUN/Creat Ratio 15.7 RATIO (10-20); Chloride 106 mmol/L (98-107); EST Glomerular Filtration Rate 92 mL/min (>60); Est Glom Filt Rate - Afr Amer 112 mL/min (>60); Globulin 3.7 g/dL (2.2-4.2); Glucose 101 mg/dL (74-106); Potassium 3.8 mmol/L (3.5-5.1); Protein, Total 7.6 g/dL (6.4-8.2); Rheumatoid Factor < 10.0 IU/mL (<15); Sodium Level 141 mmol/L (136-145); Uric Acid 5.4 mg/dL (2.6-6.0)
[2020-06-16 18:06] LABS: Erythrocyte Sedimentation Rate 15 mm/hr (0-30)
[2020-06-18 16:25] LABS: ANTINUCLEAR ANTIBODIES DIRECT Negative (Negative)
== END ==
LOC: MFPLAB 15:55
PROVIDERS: PCP Family Medicine; Visit Provider Family Medicine
DX: M25.50 Pain in unspecified joint (principal)
CPT/HCPCS: 36415; 80053; 84550; 85025; 85652; 86038; 86140; 86431

== ENCOUNTER → 2020-10-15 11:46 | Outpatient (CLI) | payer OTHER, SELFPAY ==
[2020-10-15 15:45] LABS: AST(SGOT) 21 U/L (15-37); Alanine Aminotransfer ALT/SGPT 34 U/L (13-56); Albumin, Serum 4.1 g/dL (3.2-5.0); Alkaline Phosphatase 98 U/L (45-117); Anion Gap 8 (5-15); BUN 13 mg/dL (7-18); Calcium,Total 9.4 mg/dL (8.5-10.1); Chloride 103 mmol/L (98-107); Creatinine, Serum 0.72 mg/dL (0.55-1.02); EST Glomerular Filtration Rate 89 mL/min (>60); Est Glom Filt Rate - Afr Amer 108 mL/min (>60); Glucose 95 mg/dL (74-106); Magnesium 2.4 mg/dL (1.6-2.6); Potassium 4.2 mmol/L (3.5-5.1); Protein, Total 8.1 g/dL (6.4-8.2); Sodium Level 137 mmol/L (136-145)
== END ==
PROVIDERS: Family Medicine; PCP Family Medicine; Referring Provider Family Medicine; Visit Provider Family Medicine
DX: R19.7 Diarrhea, unspecified (principal)
CPT/HCPCS: 36415; 80053; 83735

== ENCOUNTER → 2020-10-16 | Outpatient (CLI) | payer OTHER, SELFPAY ==
[2020-10-17 20:12] LABS: Fats, Neutral Normal (.); Fats, Total Normal (.)
== END | disposition home or self-care (01) ==
LOC: LABSPEC 07:02
PROVIDERS: PCP Family Medicine; Referring Provider Family Medicine; Visit Provider Family Medicine
DX: R19.7 Diarrhea, unspecified (principal)
CPT/HCPCS: 82705; 83630; 87177; 87209; 87493; 87506

== ENCOUNTER → 2020-12-18 | Outpatient (CLI) | payer OTHER, SELFPAY | END | disposition home or self-care (01) | PROVIDERS: PCP Family Medicine; Visit Provider Family Medicine | DX: U07.1 COVID-19 (principal) | CPT/HCPCS: 87635; U0005; U0003 ==

== ENCOUNTER 2020-12-19 17:30 | Outpatient (CLI) | payer OTHER, SELFPAY ==
[2020-12-19] MEDS: 0.9% Saline Lock 10 ML Syringe IV (17:48)
[2020-12-19 17:49] VITALS: BP 147/75; PULSE 84; RESP 16; TEMP 36.7; O2SAT 98; BMI 31.4
[2020-12-19 19:05] VITALS: BP 129/65; PULSE 72; RESP 16; TEMP 36.6; O2SAT 99
[2020-12-19 20:00] VITALS: BP 108/52; PULSE 76; RESP 16; TEMP 36.7; O2SAT 98
== END 2020-12-19 20:05 | disposition home or self-care (01) ==
LOC: MS3OUT 17:30 → MS3 17:32
PROVIDERS: PCP Family Medicine; Referring Provider Nurse Practitioner Adult Health; Visit Provider Nurse Practitioner Adult Health
DX: U07.1 COVID-19 (principal)
CPT/HCPCS: J7050; M0245; Q0245; A4216

== ENCOUNTER → 2021-02-12 | Outpatient (CLI) | payer OTHER, SELFPAY | END | disposition home or self-care (01) | LOC: LABSPEC 16:36 | PROVIDERS: PCP Family Medicine | DX: R69 Illness, unspecified (principal) ==

== ENCOUNTER 2021-05-04 08:30 | Outpatient (CLI) | payer OTHER, SELFPAY ==
--- NOTE | 2021-05-04 08:33 | BI_ITS ---
MAMMOGRAPHY - BILATERAL SCREENING REASON FOR EXAM: Female, 56 years old. Routine annual screening examination. PERTINENT HISTORY: Aunt with breast cancer. TECHNIQUE: Digital bilateral breast iris (3D mammographic acquisition) in the CC and MLO projections. 2-D mediolateral oblique (MLO) and craniocaudad (CC) views of both breasts were obtained. CAD: Full Field Digital Mammography with Computer Added Detection was performed. COMPARISON: Comparison is made with prior study 11/05/2019 and 09/16/2017. FINDINGS: Breast Composition: There are scattered areas of fibroglandular density. There are no dominant masses or suspicious calcifications. Stable benign-appearing bilateral axillary lymph nodes. No other significant abnormalities are identified. There has been no significant change since the prior study. BI/SCRN MAMM (CAD)W/IRIS BILAT IMPRESSION: Stable bilateral screening mammogram. Yearly follow-up mammogram recommended. (A) ASSESSMENT CATEGORY: BIRADS Category 2: Benign. A letter regarding these results will be sent to the patient by the facility within 30 days. Approximately 10% of breast cancers are not detected by mammography. A normal mammogram should not delay biopsy of a clinically suspicious abnormality. [id number] Electronically Signed: Rolly Gold MD at 9:21 EDT ,
== END 2021-05-04 23:59 | disposition home or self-care (01) ==
LOC: OPBI 08:31
PROVIDERS: PCP Family Medicine; Visit Provider Student in an Organized Health Care Education/Training Program
DX: Z12.31 Encounter for screening mammogram for malignant neoplasm of breast (principal); Z80.3 Family history of malignant neoplasm of breast
CPT/HCPCS: 77063; 77067

== ENCOUNTER 2021-05-21 16:13 | Outpatient (CLI) | payer OTHER, SELFPAY ==
--- NOTE | 2021-05-21 16:17 | RAD_ITS ---
STUDY: X-RAY - LUMBAR SPINE REASON FOR EXAM: Female, 56 years old. Back pain HIP PAIN TECHNIQUE: XR Spine Lumbar Comp W/ Bending Min 6 Views COMPARISON: None FINDINGS: Normal lumbar lordosis. There is a levoscoliosis of the lumbar spine. There is a grade 1 anterolisthesis of L1 on L2, L2 on L3, and L3 on L4. No significant movement on the flexion or extension views. There is multilevel endplate spondylosis of the lumbar vertebrae. There is multi-level degenerative disc disease with multi-level disc space narrowing. There are atherosclerotic vascular calcifications. The soft tissue structures are unremarkable. Vacuum disc phenomenon. RAD/L/S Spine Comp/w Bending Views IMPRESSION: Degenerative changes of the spine, as detailed above. Electronically Signed: Vikram Matt MD at 15:41 EDT ,
--- NOTE | 2021-05-21 16:17 | RAD_ITS ---
STUDY: X-RAY - PELVIS AND BILATERAL HIP REASON FOR EXAM: Female, 56 years old. HIP PAIN TECHNIQUE: XR Hips Bilateral with Pelvis when performed; 2 Views COMPARISON: None. FINDINGS: There is a non-specific bowel gas pattern. Normal visualized soft tissue structures. Calcific mass in the pelvis consistent for calcified fibroid. Normal bilateral iliac wings, sacroiliac joints and visualized sacrum. Normal bilateral superior and inferior pubic rami. Normal pubic symphysis. Normal bilateral ischial tuberosities. Normal visualized femoral head. Normal acetabulum. Normal hip joint. RAD/Hips B/L min 2 views w/ Pelvis IMPRESSION: No acute findings. Electronically Signed: Vikram Matt MD at 18:33 EDT ,
[2021-05-21 17:36] LABS: Absolute Lymphocyte Count 2.57 X10^3/uL (0.83-4.51); Absolute Neutrophil Count 4.2 X10^3/uL (2.0-7.7); Basophil# 0.06 X10^3/uL; Basophil% 0.8 % (0-1); Eosinophil# 0.28 X10^3/uL; Eosinophils% 3.6 % (0-5); Hematocrit 43.6 % (37-47); Hemoglobin 14.5 g/dL (12.0-15.0); Lymphocyte # 2.57 X10^3/ul (0.83-4.51); Lymphocyte % 32.7 % (19-41); Mean Corp Hgb Conc 33.3 g/dL (32-36); Mean Corpuscular Hgb 29.2 pg (27.0-32.0); Mean Corpuscular Volume 87.9 fL (81-99); Mean Platelet Vol. 8.4 fl (6.2-12.0); Monocyte# 0.74 X10^3/uL; Monocyte% 9.4 % (0-10); NRBC Flagged by Analyzer 0 % (0-5); Neutrophil # 4.16 X10^3/uL (2.7-7.7); Neutrophil % 52.9 % (47-70); Platelet Count 312 K/mm3 (150-450); RBC Distribution Width CV 12.1 % (11.6-14.6); RBC Distribution Width SD 38.9 fl (35.1-43.9); Red Blood Count 4.96 M/mm3 (4.2-5.4); White Blood Count 7.9 K/mm3 (4.4-11.0)
[2021-05-21 17:55] LABS: ALB/GLOB Ratio 1.1 RATIO (0.9-2.4); AST(SGOT) 18 U/L (15-37); Alanine Aminotransfer ALT/SGPT 31 U/L (13-56); Albumin, Serum 3.9 g/dL (3.2-5.0); Alkaline Phosphatase 88 U/L (45-117); Anion Gap 5 (5-15); BUN 19 mg/dL (7-18); BUN/Creat Ratio 26.3 RATIO (10-20); CRP 6.13 mg/L (0.0-3.0); Calcium,Total 8.6 mg/dL (8.5-10.1); Chloride 104 mmol/L (98-107); Creatinine, Serum 0.72 mg/dL (0.55-1.02); EST Glomerular Filtration Rate 89 mL/min (>60); Est Glom Filt Rate - Afr Amer 107 mL/min (>60); Globulin 3.7 g/dL (2.2-4.2); Glucose 105 mg/dL (74-106); Potassium 3.6 mmol/L (3.5-5.1); Protein, Total 7.6 g/dL (6.4-8.2); Rheumatoid Factor < 10.0 IU/mL (<15); Sodium Level 138 mmol/L (136-145)
[2021-05-21 17:56] LABS: Erythrocyte Sedimentation Rate 7 mm/hr (0-30)
[2021-05-26 17:01] LABS: ANTINUCLEAR ANTIBODIES DIRECT Negative (Negative)
[2021-05-28 20:08] LABS: HLA B27 Negative (.)
== END 2021-05-21 23:59 | disposition home or self-care (01) ==
LOC: MTLAB 16:15
PROVIDERS: PCP Family Medicine; Referring Provider Family Medicine; Visit Provider Family Medicine
DX: M47.816 Spondylosis without myelopathy or radiculopathy, lumbar region (principal); M51.36 Other intervertebral disc degeneration, lumbar region; M48.061 Spinal stenosis, lumbar region without neurogenic claudication; M25.551 Pain in right hip; M25.552 Pain in left hip
CPT/HCPCS: 36415; 72114; 73521; 80053; 81374; 85025; 85652; 86038; 86140; 86431

== ENCOUNTER 2021-10-02 07:36 | Outpatient (RCR) | payer OTHER, SELFPAY ==
--- NOTE | 2021-10-09 12:49 | HP.OTFCE.D ---
FCE D/C Summary - Discharge JOCELIN BEAN was seen for a one time visit for an FCE on 10/02/21 and is discharged.
--- NOTE | 2021-10-09 12:49 | HP.FCE ---
Floor (Occasional 1-33% of Day): 25# Floor (Frequent 34-66% of Day): 12.5# Floor (Constant 67-100% of Day): NA Floor PDL: Light Knee (Occasional 1-33% of Day): 25# Knee (Frequent 34-66% of Day): 12.5# Knee (Constant 67-100% of Day): NA Knee PDL: Light Waist (Occasional 1-33% of Day): 20# Waist (Frequent 34-66% of Day): 10# Waist (Constant 67-100% of Day): NA Waist PDL: Light Shoulder (Occasional 1-33% of Day): 20# Shoulder (Frequent 34-66% of Day): 10# Shoulder (Constant 67-100% of Day): NA Shoulder PDL: Light Overhead (Occasional 1-33% of Day): 15# Overhead (Frequent 34-66% of Day): 8# Overhead (Constant 67-100% of Day): NA Overhead PDL: Sedentary-Light Comments: pt demonstrates a light physical demand level for lifting from floor-knee- waist and shoulder levels-. a Sedentary light physical demand level for lifting overhead Bending: Occasional Ability (1-33% of day) Squatting: Occasional Ability (1-33% of day) Comments: low occasional ability with external support Kneeling: No Ablility (0% of day) Reaching out: Frequent Ability (34-66% of day) Reaching up: Frequent Ability (34-66% of day) Sitting: Frequent Ability (34-66% of day) Walking: Occasional Ability (1-33% of day) Standing: Occasional Ability (1-33% of day) Duration Sedentary Sedentary Light Light Light Medium Medium Medium Heavy Very Heavy Heavy Occasional (0-33% of day) Frequent (34-66% of day) Constant (67-100% of day) 10 # Negligible Negligible 15 # 8 # Negligible 20 # 10# Negli. 35 # 18 # 7 # 50 # 25 # 10 # 75 # 100 # >100 # 38 # 50 # >50 # 15 # 20 # >20 # Weight:: 78.925 kg Hand Dominance: right Medical History Including Restrictions: Pt states she was in good health until she suffer a budging disc. 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 Pt states she has been to pain mtg. and had 2 injections and this did help for a little while. pt states is currently on medication to help with her pain- pt is pursing a implant nerve simulator. pt does not exercise- has not pursued the any therapy. no restrictions of lifting at this time. pt is on muscle relaxer- pain med and anti inflammatory Diagnoses: Lumbosacral DD. restless leg syndrome Symptoms: bilateral hip pain. tingling/numbness in bilateral legs. tired. sleep interruption Pain: Pt states the more she is active the more painful she gets-. Constanza pain scale total point score 34/70. Interpretation: ? minimum pain score: 0 (would not be seen in a person with true pain). ? maximum pain score: 78. ? The higher the pain score the greater the pain. References: Radha Strange. The Constanza Pain Questionnaire: Major properties and scoring methods. Pain. 1975;. 1: 277-299. Hal Lassiter. The [place] counterpart to Constanza Pain Questionnaire. Pain. 1988; 32: 251-255. 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 pt states general cleaning, vacuum, move dinning room chairs, picking machine operator helper toy- cleaning showers- dusting- Pt states she has been having difficulty performing her job for several months limiting her ability to perform cleaning tasks for her 12 clients. Behavioral: pt cooperative throughout assessment ADLS: Pt lives with in one story home - stairs for basement and laundry- pt states she has a tub shower - and shower chair but has not had to use it yet- Pt states she can bath IND. and Dress IND. pt does most of the grocery shopping- sometimes her and her will go together- Pt Drives IND. pt does meal prep and cooking- if pt is having difficulty her will cook. pt states her is doing the yard work- pt states she will do some stick picking machine operator helper and walk the dogs around the yard- unable to mow due to turning steering wheel tweaks her back so her spose does the mowing. pt had x ray and MRI this year. ROM: pt demo full UB ROM Strength: bilateral UB shoulder peak force 13#. bilateral triceps right 15# left 13#. biceps right 20# left 18#. hip flexion right 15# left 15#. right hamstring 23# left 22#. right quad 16#. left quad 20#. pt demo good functional strength Right Shingle Cutter Strength Average: 56.66 Right Shingle Cutter Strength Percentile: 24% Left Shingle Cutter Strength Average: 58.33 Left Shingle Cutter Strength Percentile: 44% Right Lateral Pinch Average: 10.66 Right Lateral Pinch Percentile: 25% Left Lateral Pinch Average: 11.33 Left Lateral Pinch Percentile: 50% Right Tripod Pinch Average: 10.00 Right Tripod Pinch Percentile: 25% Left Tripod Pinch Average: 10.00 Left Tripod Pinch Percentile: 50% Comments: pt demo functional magnaflux operator and pinch strength for her age Sensation: denies Fine Motor: denies deficits Balance: 12 functional reach indicating good balance. Age Matched norms? (Age/ M/ F) Age Males/ Females. 20-40yrs. 16.7 + 1.9 / 14.6 + 2.2. 41-69yrs. 14.9 + 2.2 / 13.8 + 2.2. 70-87yrs. 13.2 + 1.6 / 10.5 + 3.5. pt reports back pain at 6/10. increase numb tingling in her back Bending: pt completed 3/3x, 10/10x, and 10/10 rapidly. heart rate 89. pt reported 4/10 hip pain. pt can bend forward on occasional ability Squatting: pt demo the ability to squat 3/3x with external support unable to perform 10/10x or 10/10x rapidly. pt reports back pain at 5/10. shen rate 83. pt can squat on low occasional ability with external support Kneeling: pt demo the ability to kneel 1/3 x states her hip pain was 8/10 and heart rate 68. tingling in legs. pt use of external support. pt demo no ability to kneel safely Reaching out/up: pt demo the ability to reach up/out3/3, 10/10x, 10/10x rapidly -. pt required little break between arms are heavy. pt can reach out/up on a frequent ability Walking: pt demo the ability to ambulate 6 min with antalgic gait patter-. pt states pain bilateral hips 7/10. tingling in legs. feels weakness. pt can ambulate on occasional ability Standing: pt demo the ability to 4 min shifting body weight. pt can stand on occasional ability Sitting: pt demo the ability to sit for 30 min with noted wt shift - but no reported increase pain or discomfort. pt can sit on frequent ability Climbing Stairs: pt demo the ability to ascend and descend 10 steps with use of bilateral hand rails and reciprocal step pattern. Floor Lift: pt demo the ability to lift 25# from this level- for a LIGHT PHYSICAL DEMAND LEVEL Knee Lift: pt demo the ability to lift 25# from this level -for a LIGHT PHYSICAL DEMAND LEVEL Waist Lift: pt demo the ability to lift 20# from this level for a LIGHT PHYSICAL DEMAND LEVEL Shoulder Lift: pt demo the ability to lift 20# from this level for a LIGHT PHYSICAL DEMAND LEVEL Overhead Lift: pt demo the ability to lift 15#from this level for a SEDENTARY LIGHT PHYSICAL DEMAND LEVEL Carrying: pt demo the ability to carry 15# for 30 feet with antalgic gait pattern. right hip 7/10. heart rate 97 Comments: pain limits pts functional mobility
== END 2021-10-02 19:00 | disposition home or self-care (01) ==
LOC: OT 07:36
PROVIDERS: PCP Family Medicine; Referring Provider Family Medicine; Visit Provider Family Medicine
DX: M51.37 Other intervertebral disc degeneration, lumbosacral region (principal)
CPT/HCPCS: 97750

== ENCOUNTER 2021-12-08 14:12 | Emergency (ER) | payer OTHER, SELFPAY ==
[2021-12-08 14:12] VITALS: BP 141/72; PULSE 106; RESP 14; TEMP 36.7; O2SAT 97; BMI 32.0
[2021-12-08 15:45] VITALS: BP 132/76; PULSE 82; RESP 16; O2SAT 97
--- NOTE | 2021-12-08 15:58 | ED.VIS.BACK ---
HPI History of Present Illness Chief Complaint: Back Narrative Narrative: 56-year-old female here with back pain. Patient states has had back pain has been constant, severe located over the mid back radiating to bilateral groins. Denies any recent falls or trauma. States has been on gabapentin, muscle relaxers, anti-inflammatories, Tylenol and lidocaine patch without relief. Says she is followed with pain management who prescribed gabapentin. States she called her orthopedic doctor prior to arrival who stated she should come to the ED for further pain control. Patient denies any saddle anesthesia, urinary tension, bowel or bladder incontinence, lower extremity weakness, fever or IV drug use, no recent spinal manipulation or surgery, no recent urinary catheterization. Old chart reviewed: X-rays of the lumbar spine, hip and pelvis from May 2021 showed no acute abnormalities No recent advanced imaging of the axial skeleton noted PFSH PFSH Medical History (Updated 12/08/21 @ 16:[address] Yadiel Spencer, DO) Anxiety Kidney stones Spinal arthritis Home Medications indomethacin 25 mg capsule 25 mg PO TID 12/08/21 [History Last Taken Unknown] oxycodone 5 mg capsule 5 mg PO Q6H PRN pain 3 days #12 caps 12/08/21 [Rx Last Taken Unknown] pramipexole 1 mg tablet 0.5 mg PO QHS 12/08/21 [History Last Taken Unknown] tizanidine 4 mg tablet 4 mg PO QHS 12/08/21 [History Last Taken Unknown] Allergy/AdvReac Type Severity Reaction Status Date / Time prednisone Allergy facial Verified 12/08/21 14:17 flushing shellfish derived Allergy Itching Verified 12/08/21 14:17 Surgical History (Updated 12/08/21 @ 15:44 by Easton Elliott) History of cholecystectomy Social History Smoking Status: Current every day smoker tobacco type: cigarettes ROS ROS ED ROS Narrative Constitutional: Denies fever HEENT: Denies sore throat Neck: Denies neck pain Cardiovascular: Denies chest pain, syncope Respiratory: Denies shortness of breath GI: Denies nausea vomiting or abdominal pain : Denies changes in urinary habits Musculoskeletal: Endorses back pain Neurologic: Denies numbness weakness or loss of sensation Skin denies rash EXAM Physical Exam Narrative Exam Narrative: Nursing triage notes reviewed, Vital signs reviewed Constitutional: please see mdm HENT: MMM Eyes: Pupils equal round and reactive to light, Extraocular muscles intact Neck: No stridor, no JVD, full neck ROM Lungs: Clear to auscultation, No wheezing or rales. No increased work of breathing, no conversational dyspnea, no accessory muscle use, no nasal flaring. No respiratory distress noted Heart: Regular rate and rhythm, No murmurs, No rubs and No gallops, 2+ distal pulses (radial, femoral, posterior tibial) in all extremities Abdomen: Soft, there is no tenderness, rigidity, rebound or guarding, no obvious peritoneal signs, no palpable pulsatile abdominal masses, no auscultated abdominal bruit : No CVAT Extremities: No edema. Intact hip flexion, extension, internal and external rotation. No TTP noted over bilateral greater trochanters Back: No midline step-offs or deformities. TTP over left piriformis muscle. Positive straight leg raise on the right Neuro: Intact sensation L1-S1 dermatomal distributions. Intact 5/5 strength in hip flexion (T12-L3). Knee extension (L2-L4). Ankle dorsiflexion (L4-L5). Ankle plantar flexion (S1). Great toe extension (L5). 2+ patellar and Achilles DTRs. Skin: No rash or lesions noted Const Vital Signs: 12/08/21 14:12 12/08/21 15:45 12/08/21 16:52 Temperature 98.0 F Temperature Source Temporal Pulse Rate 106 H 82 82 Respiratory Rate 14 16 15 Blood Pressure 141/72 H 132/76 H 129/85 H Blood Pressure Mean 95 94 Pulse Ox 97 97 98 Oxygen Delivery Method Room Air Room Air MDM MDM MDM Narrative Medical decision making narrative: 56-year-old female presents with acute on chronic back pain in the setting of severe lumbar arthritic changes. She was hemodynamically stable, afebrile, nontoxic-appearing. Exam without focal neurologic deficits. She had no red flag symptoms. Low suspicion for space-occupying lesion, cauda equina at this time. Gave symptomatic control here and discharged with symptomatic Introl with instructions to follow-up with orthopedic surgery and pain management. The patient presented complaining of back pain. There was no history of recent fall or trauma. There was no evidence to support genitourinary etiology. There is also no evidence to suggest vascular pathology such as AAA dissection. No fevers or other evidence to suspect infectious processes, abscess, osteomyelitis etc. The patient?s neurological exam is normal with normal motor and sensory. There is no saddle paresthesias reported and no bowel or bladder incontinence or retention. I suspect the pain is mechanical in nature. Clinical suspicion, plan of care and management was discussed with the patient. The patient was instructed to follow up with their health care provider. The patient was also instructed to return if the pain worsened, changed, or developed weakness or bowel or bladder trouble. The patient agreed with plan. I completed a structured, evidence-based clinical evaluation to screen for acute non-traumatic spinal emergencies. The patient has a normal detailed neurologic exam and a low red flag score. The evidence indicates that the patient is very low risk for an acute spinal emergency and this is consistent with my clinical intuition. The risk of further workup is higher than the likelihood of the patient having a spinal epidural abscess or other dangerous emergency spinal condition. It is, therefore, in the patient?s best interest not to do additional emergent testing at this time. Shared Decision-Making I have discussed with the patient my clinical impression and the result of an evidence-based clinical evaluation to screen for spinal epidural abscess and other spinal emergencies, as well as the risk of further testing and hospitalization. The evidence shows that the risk for an acute spinal emergency is less than 1%. Although the risk of an acute spinal emergency has not been completely eliminated, the risks of further testing likely exceed any potential benefit, and the patient agrees with not pursuing further emergent evaluation for causes of back pain at this time. Treatment and Re-Evaluation Narrative: Patient's pain improved after narcotics, Tylenol, anti-inflammatories. Discharge with a 3-day prescription of oxycodone for pain management and orthopedic follow-up. Discharge Plan Triage Chief Complaint: Back ED Provider: Yadiel Spencer Dx/Rx/DC Orders Clinical Impression: Back pain Instructions: ED Back Pain (Acute or Chronic) Prescriptions: New oxycodone 5 mg capsule 5 mg PO Q6H PRN (Reason: pain) 3 Days Qty: 12 0RF No Action pramipexole 1 mg tablet 0.5 mg PO QHS Label Comments: TAKE 1/2 TO 1 TABLET BY MOUTH NIGHTLY tizanidine 4 mg tablet 4 mg PO QHS indomethacin 25 mg capsule 25 mg PO TID Primary Care Provider: Luke Meza Referrals: Luke Meza MD [Primary Care Provider] - Disposition Disposition: Home, Self Care Discharge Date/Time: 12/08/21 16:53
[2021-12-08] MEDS: dexAMETHasone 4 MG Tablet 6 MG PO (16:42)
[2021-12-08] MEDS: Acetaminophen 500 MG Tablet 1000 MG PO (16:42)
[2021-12-08] MEDS: Ibuprofen 200 MG Tablet 400 MG PO (16:42)
[2021-12-08] MEDS: oxyCODONE 5 MG Tablet PO (16:42)
[2021-12-08 16:52] VITALS: BP 129/85; PULSE 82; RESP 15; O2SAT 98
== END 2021-12-08 16:53 | disposition home or self-care (01) ==
LOC: ED 16:30
PROVIDERS: Emergency Provider Emergency Medicine; PCP Family Medicine; Visit Provider Emergency Medicine
DX: M54.50 Low back pain, unspecified (principal); F17.210 Nicotine dependence, cigarettes, uncomplicated
CPT/HCPCS: 99283

== ENCOUNTER → 2022-01-04 | Outpatient (CLI) | payer OTHER, SELFPAY ==
--- NOTE | 2022-01-04 12:40 | RAD_ITS ---
STUDY: X-RAY CHEST REASON FOR EXAM: Female, 56 years old. Hemoptysis. TECHNIQUE: Frontal and lateral views of the chest. COMPARISON: January 25, 2017. FINDINGS: The lungs are clear and expanded. There is no demonstrated pleural abnormality. Normal size heart. Normal mediastinum and rhianonn. Normal visualized pulmonary arteries. Normal visualized aortic arch and descending thoracic aorta. Normal visualized thoracic spine. Normal visualized ribs, clavicles, and shoulders. There is no demonstrated abnormality of the visualized soft tissue structures of the upper abdomen. RAD/Chest PA and Lateral IMPRESSION: No interval change. Normal chest. Pending Final Proof Editing
== END | disposition home or self-care (01) ==
PROVIDERS: PCP Family Medicine; Referring Provider Family Medicine; Visit Provider Family Medicine
DX: R04.2 Hemoptysis (principal)
CPT/HCPCS: 71046

== ENCOUNTER → 2022-09-10 | Outpatient (CLI) | payer OTHER, SELFPAY ==
--- NOTE | 2022-09-10 08:11 | CT_ITS ---
STUDY: LOW DOSE CT LUNG CANCER SCREENING REASON FOR EXAM: Female, 57 years old. Tobacco abuse 1/2 PPD X 16 YEARS RADIATION DOSAGE (If Supplied By Facility): CTDIvol = ( 3.02 ) mGy, DLP = ( 107.22 ) mGycm TECHNIQUE: No contrast was administered. Low dose technique was utilized (average mAS-38 and kVp 120). 1.25 mm axial source images with a slice interval of 1.25-mm were reconstructed in lung windows. 2.5 mm axial source images with a slice interval of 2.5-mm were reconstructed in lung windows. 5.0 mm axial source images with a slice interval of 5.0-mm were reconstructed in soft tissue windows. COMPARISON: Comparison is made with prior chest radiograph dated January 04, 2022. NODULES: No suspicious nodules are seen. Emphysema: Findings suggest some mild linear scarring in the anterior aspect of the right middle lobe as well as in the posterior aspect of the lingular segment of the left upper lobe. Endobronchial lesion: Unremarkable Aorta: Minimal calcific plaque at the level of the aortic arch. CORONARY ARTERIES: Coronary artery calcification is not seen. Heart: Unremarkable Pulmonary artery: Unremarkable. Mediastinal nodes: Small benign-appearing mediastinal lymph nodes. Other chest and abdominal findings: CT/Low Dose CT Lung Screening IMPRESSION: Lung-RADS category 2 - Continue annual screening with LDCT in 12 months. IMPORTANT NOTES FOR USE: ACR Lung-RADS Version 1.1 Assessment Categories Release Date: 2018 Category: Coded 0-4 bases on nodule(s) with highest degree of suspicion. Negative screen is defined as categories 1 and 2; a positive screen is defined as categories 3 and 4. Category 3 and 4A nodules that are unchanged on interval CT should be coded as category 2, and individuals returned to screening in 12 months. Category 4X: Category 3 or 4 nodules with additional imaging findings that increase the suspicion of lung cancer, such as spiculation, GGN that doubles in size in 1 year, enlarged lymph notes, etc. Category Modifiers: S (significant finding unrelated to lung cancer) Electronically Signed: Rolly Gold MD at 11:10 EDT ,
== END | disposition home or self-care (01) ==
LOC: CT 08:09
PROVIDERS: PCP Family Medicine; Referring Provider Family Medicine; Visit Provider Family Medicine
DX: Z12.2 Encounter for screening for malignant neoplasm of respiratory organs (principal); F17.200 Nicotine dependence, unspecified, uncomplicated
CPT/HCPCS: 71271

== ENCOUNTER → 2022-10-30 | Outpatient (CLI) | payer OTHER, SELFPAY ==
--- NOTE | 2022-10-30 08:49 | MRI_ITS ---
STUDY: MRI LUMBAR SPINE WITHOUT CONTRAST REASON FOR EXAM: Female, 57 years old. RADICULOPATHY TECHNIQUE: Standardized fat and water weighted pulse sequences were obtained in the sagittal and axial planes. COMPARISON: X-ray 05/21/2021 FINDINGS: T12-L1: Normal endplates. Normal disc height, hydration and morphology. Normal bilateral facet joints. Normal central canal and bilateral lateral recesses. Normal bilateral intervertebral neural foramina. Normal lumbar lordosis. Mild levoscoliosis centered at L2. Normal conus medullaris that terminates at the T12/L1. L1-2: Mild bilateral facet hypertrophy with facet joints consistent with instability and mild ligament flavum hypertrophy. 2 mm of retrolisthesis of L1 on L2 with a mild bilobed disc protrusion produces mild spinal stenosis and mild bilateral neural foraminal stenosis. L2-3: Mild bilateral facet hypertrophy and ligament flavum hypertrophy. 5 mm retrolisthesis of L2 on L3 with a mild bilobed disc protrusion produces moderate spinal stenosis with moderate bilateral lateral recess stenosis with abutment of the L3 nerve roots bilaterally and moderate bilateral neural foraminal stenosis. L3-4: Status post posterior decompression. 5 mm retrolisthesis of L3 on L4 with a mild bilobed disc protrusion with no spinal stenosis due to the posterior decompression and moderate bilateral neural foraminal stenosis. L4-5: Status post posterior decompression. Moderate broad disc protrusion with no spinal stenosis due to the posterior decompression and moderate bilateral neural foraminal stenosis. L5-S1: Status post posterior decompression. Moderate broad disc protrusion asymmetric left produces moderate left lateral recess stenosis with abutment of the left S1 nerve root and mild left neural foraminal stenosis. Normal visualized sacral ala. Normal visualized paraspinous soft tissue structures. MRI/Spine Lumbar (Routine) IMPRESSION: Postsurgical changes and degenerative disc disease as described above. Electronically Signed: Alan Canas MD at 21:13 EDT ,
== END | disposition home or self-care (01) ==
PROVIDERS: PCP Family Medicine; Referring Provider Anesthesiology Pain Medicine; Visit Provider Anesthesiology Pain Medicine
DX: M96.1 Postlaminectomy syndrome, not elsewhere classified (principal)
CPT/HCPCS: 72148

== ENCOUNTER → 2023-01-05 | Outpatient (CLI) | payer OTHER, SELFPAY ==
--- NOTE | 2023-01-05 15:57 | RAD_ITS ---
INDICATION: BILAT HIP OA EXAMINATION/TECHNIQUE: X-RAY - XR Hips Bilateral with Pelvis when performed; 2 Views COMPARISON: 05/05/2020 FINDINGS: PELVIC BONES: No displaced fracture, destructive or sclerotic lesions. Note that overlapping bowel shadows may however obscure fine detail. Degenerative disease of bilateral SI joints. Degenerative arthrosis of the lower lumbar spine. Mild degenerative disease of the pubic symphysis. Coarse calcifications at the level of the pelvis, associated with calcified uterine fibroids. HIPS: Mild narrowing of the bilateral hip joints. No distinct fracture involving bilateral proximal femurs. Bilateral superior and inferior pubic rami are normal. SOFT TISSUES: No soft tissue swelling or gas. RAD/Hips B/L min 2 views w/ Pelvis IMPRESSION: Mild multilevel degenerative disease with no distinct fracture or subluxation through the bilateral hips or visualized bony pelvis. Electronically Signed: Meri Carrero MD at 22:09 EST ,
[2023-01-05 16:25] LABS: Amphetamine Urine VISTA NEGATIVE (<1000 ng/mL); Barbiturate Urine VISTA NEGATIVE (< 200 ng/mL); Benzodiazepine Urine VISTA NEGATIVE (< 200 ng/mL); Cocaine Urine VISTA NEGATIVE (< 300 ng/mL); Ecstacy Urine VISTA NEGATIVE (< 500 ng/mL); Methadone Urine VISTA NEGATIVE (< 300 ng/mL); PCP Urine VISTA NEGATIVE (< 25 ng/mL); THC Urine VISTA NEGATIVE (< 50 ng/mL); Vista UDS pH Range 5
== END | disposition home or self-care (01) ==
LOC: LAB 15:46
PROVIDERS: PCP Family Medicine; Referring Provider Anesthesiology Pain Medicine; Visit Provider Anesthesiology Pain Medicine
DX: M16.0 Bilateral primary osteoarthritis of hip (principal); F11.20 Opioid dependence, uncomplicated
CPT/HCPCS: 73521; 80307

== ENCOUNTER → 2023-03-07 | Outpatient (CLI) | payer OTHER, SELFPAY ==
[2023-03-07 16:20] LABS: Absolute Lymphocyte Count 2.26 X10^3/uL (0.83-4.51); Absolute Neutrophil Count 4.8 X10^3/uL (2.0-7.7); Basophil# 0.09 X10^3/uL; Basophil% 1.1 % (0-1); Eosinophil# 0.31 X10^3/uL; Eosinophils% 3.7 % (0-5); Hematocrit 45.1 % (37-47); Hemoglobin 14.6 g/dL (12.0-15.0); Lymphocyte # 2.26 X10^3/ul (0.83-4.51); Lymphocyte % 27.2 % (19-41); Mean Corp Hgb Conc 32.4 g/dL (32-36); Mean Corpuscular Hgb 29.1 pg (27.0-32.0); Mean Corpuscular Volume 89.8 fL (81-99); Mean Platelet Vol. 8.9 fl (6.2-12.0); Monocyte# 0.85 X10^3/uL; Monocyte% 10.2 % (0-10); NRBC Flagged by Analyzer 0 % (0-5); Neutrophil # 4.75 X10^3/uL (2.7-7.7); Neutrophil % 57.2 % (47-70); Platelet Count 303 K/mm3 (150-450); RBC Distribution Width CV 12.2 % (11.6-14.6); RBC Distribution Width SD 40.2 fl (35.1-43.9); Red Blood Count 5.02 M/mm3 (4.2-5.4); White Blood Count 8.3 K/mm3 (4.4-11.0)
[2023-03-07 16:23] LABS: Erythrocyte Sedimentation Rate 20 mm/hr (0-30)
[2023-03-07 16:26] LABS: Vitamin D,25 Hydroxy 29.2 ng/mL
[2023-03-07 16:39] LABS: AST(SGOT) 26 U/L (15-37); Alanine Aminotransfer ALT/SGPT 35 U/L (13-56); Albumin, Serum 3.6 g/dL (3.2-5.0); Alkaline Phosphatase 95 U/L (45-117); Anion Gap 8 (5-15); BUN 16 mg/dL (7-18); BUN/Creat Ratio 24.1 RATIO (10-20); Calcium,Total 9.2 mg/dL (8.5-10.1); Chloride 103 mmol/L (98-107); Creatinine, Serum 0.66 mg/dL (0.55-1.02); EST Glomerular Filtration Rate 97 mL/min (>60); Est Glom Filt Rate - Afr Amer 117 mL/min (>60); Free T3 3.2 pg/mL (2.18-3.98); Globulin 3.6 g/dL (2.2-4.2); Glucose 118 mg/dL (74-106); Protein, Total 7.2 g/dL (6.4-8.2); Sodium Level 137 mmol/L (136-145); T4 Free Direct 1.05 ng/dL (0.76-1.46); Thyroid Stim Hormone (TSH) 2.46 uIU/mL (0.358-3.74); Uric Acid 5.8 mg/dL (2.6-6.0)
[2023-03-09 14:09] LABS: Lyme Scn Total Ab w/Rflx Negative (Negative)
== END | disposition home or self-care (01) ==
LOC: MFPLAB 11:22
PROVIDERS: PCP Family Medicine; Visit Provider Family Medicine
DX: M06.4 Inflammatory polyarthropathy (principal)
CPT/HCPCS: 36415; 80053; 82306; 84439; 84443; 84481; 84550; 85025; 85652; 86618

== ENCOUNTER → 2023-06-24 | Outpatient (CLI) | payer OTHER, SELFPAY ==
--- NOTE | 2023-06-24 09:26 | RAD_ITS ---
EXAM: XR ABDOMEN, 2 VIEWS CLINICAL INDICATION: vomiting TECHNIQUE: Frontal view of the abdomen/pelvis with upright view of the abdomen. COMPARISON: No relevant prior studies available. FINDINGS: LOWER THORAX: No acute pathology. INTRAPERITONEAL SPACE: No free air. GASTROINTESTINAL TRACT: Unremarkable. Non-obstructive. No bowel or stomach distention. ORGANS: There are coarse calcifications in the left hemipelvis likely representing a calcified uterine fibroid. No organomegaly. BONES/JOINTS: There is been a bilateral laminectomy from L3 through L5. SOFT TISSUES: No acute pathology. RAD/Abd Inc Decub and/or Erect IMPRESSION: No acute findings in the abdomen or pelvis. Electronically Signed: Zach Rodarte MD at 19:50 EDT ,
== END | disposition home or self-care (01) ==
LOC: MTRAD 09:26
PROVIDERS: PCP Family Medicine; Referring Provider Family Medicine; Visit Provider Family Medicine
DX: R11.10 Vomiting, unspecified (principal)
CPT/HCPCS: 74019

== ENCOUNTER → 2023-08-22 | Outpatient (CLI) | payer OTHER, SELFPAY ==
--- NOTE | 2023-08-22 17:05 | RAD_ITS ---
STUDY: X-RAY CHEST REASON FOR EXAM: Female, 58 years old. cough TECHNIQUE: PA and lateral COMPARISON: None. FINDINGS: There is mild linear scarring or discoid atelectasis in left lower lobe.. There is no demonstrated pleural abnormality. Normal size heart. Normal mediastinum and rhiannon. Normal visualized pulmonary arteries. Normal visualized aortic arch and descending thoracic aorta. Dorsal spine demonstrates mild scoliosis and degenerative change Normal visualized ribs, clavicles, and shoulders. There is no demonstrated abnormality of the visualized soft tissue structures of the upper abdomen. RAD/Chest PA and Lateral IMPRESSION: Mild discoid atelectasis or linear scarring in left lower lobe. Electronically Signed: Nirmal Cruz MD at 18:13 EDT ,
== END | disposition home or self-care (01) ==
PROVIDERS: PCP Family Medicine; Referring Provider Physician Assistant; Visit Provider Physician Assistant
DX: R05.9 Cough, unspecified (principal)
CPT/HCPCS: 71046

== ENCOUNTER → 2023-08-26 | Outpatient (CLI) | payer OTHER, SELFPAY ==
--- NOTE | 2023-08-26 07:27 | US_ITS ---
STUDY: ABDOMINAL ULTRASOUND REASON FOR EXAM: Female, 58 years old. VOMITING TECHNIQUE: Transabdominal ultrasound was performed with real-time and static serrano scale imaging. TECHNICAL QUALITY: Adequate. COMPARISON: Comparison is made with prior study dated July 11, 2013. FINDINGS: Liver: The liver is enlarged and measures 18.4 cm. There is increased echogenicity consistent with fatty infiltration. The bile ducts are within normal limits. There is hepatic color flow. The direction of portal flow is hepatopetal. There is a 1.6 cm x 1.7 cm x 1.1 cm cyst in the anterior right lobe of liver. There is also evidence of a 2.2 cm x 2.1 cm x 1.9 cm cyst in the midportion of the right lobe of the liver. Gallbladder: The patient is status post cholecystectomy. Common Bile Duct (C.B.D.): The common bile duct measures 1.0 mm. Pancreas: Normal size of the head, body and tail of the pancreas. There is normal echogenicity of the pancreas. There is no demonstrated pancreatic mass or cyst. Spleen: Normal size of the spleen. The spleen measures 7.8 cm x 4.8 cm x 4.4 cm. Right Kidney: Normal size of the right kidney. The right kidney measures 11.4 cm x 5.3 cm x 4.6 cm. Normal renal cortex. The right cortex measures 1.3 cm. There is no demonstrated renal mass or cyst. There is no right hydronephrosis. Left Kidney: Normal size of the left kidney. The left kidney measures 11.8 cm x 4.8 cm x 5.4 cm. Normal renal cortex. The left cortex measures 1.4 cm. There is no demonstrated renal mass or cyst. There is no left hydronephrosis. Aorta: Unremarkable I.V.C.: The IVC is patent. There is no ascites. US/Abdomen Complete IMPRESSION: Hepatomegaly and fatty infiltration of the liver. Small right hepatic cysts. Status post cholecystectomy. Electronically Signed: Rolly Gold MD at 11:16 EDT ,
== END | disposition home or self-care (01) ==
LOC: US 07:26
PROVIDERS: PCP Family Medicine; Referring Provider Family Medicine; Visit Provider Family Medicine
DX: R11.10 Vomiting, unspecified (principal)
CPT/HCPCS: 76700

== ENCOUNTER → 2023-12-21 | Outpatient (CLI) | payer OTHER, SELFPAY | END | disposition home or self-care (01) | LOC: US 07:50 | PROVIDERS: PCP Family Medicine; Referring Provider Internal Medicine Gastroenterology; Visit Provider Internal Medicine Gastroenterology | DX: K76.0 Fatty (change of) liver, not elsewhere classified (principal) | CPT/HCPCS: 76981 ==

== ENCOUNTER → 2024-01-31 | Outpatient (CLI) | payer OTHER, SELFPAY ==
--- NOTE | 2024-01-31 08:04 | NM_ITS ---
CLINICAL: 58-year-old female with history of chronic nausea. SEMI-SOLID PHASE 99m Tc SULFUR COLLOID GASTRIC EMPTYING STUDY COMPARISON: Abdominal ultrasound report 08/26/2023 FINDINGS: The patient was administered 1.2 mCi of 99m Tc sulfur colloid mixed with oatmeal and consumed per os. Image acquisitions in the anterior-posterior projections were obtained for 60 minutes. There is prompt visualization of the stomach. There is no gastroesophageal reflux identified. The T ? raw data emptying was calculated to be 56.53 minutes, (Normal: 12-56 minutes). NM/Gastric Emptying Study - 4 HR IMPRESSION: 1. UPPER LIMITS OF NORMAL 99m Tc sulfur colloid semi-solid phase (oatmeal) gastric emptying imaging examination. A. There is borderline normal and preserved semi-solid phase gastric emptying compared to normal controls. (Randy et al, J Nucl Med Tech 38: 186, 2010). Electronically Signed: Alan Cardoza DO at 10:29 EST ,
== END | disposition home or self-care (01) ==
LOC: NM 08:01
PROVIDERS: PCP Family Medicine; Referring Provider Internal Medicine Gastroenterology; Visit Provider Internal Medicine Gastroenterology
DX: R11.2 Nausea with vomiting, unspecified (principal)
CPT/HCPCS: 78264; A9541

== ENCOUNTER → 2024-04-02 | Outpatient (CLI) | payer MEDICARE, SELFPAY ==
--- NOTE | 2024-04-02 12:57 | CT_ITS ---
PROCEDURE: LOW DOSE CT LUNG SCREENING REASON FOR EXAM: Current smoker. Patient has smoked half a pack per day for 15 years. TECHNIQUE: Low Dose CT Lung Screening without contrast COMPARISON: Comparison is made with prior study dated September 10, 2022. FINDINGS: PULMONARY NODULES: (Only nodules >6mm are reported) Nodules described below are on series unless otherwise specified. Pulmonary Nodules: No concerning pulmonary nodules. Hardware:None Lymph Nodes:No mediastinal hilar or axillary lymphadenopathy. Heart and Vasculature:Normal heart size. No pericardial effusion.Thoracic aorta and pulmonary arteries have normal contours; noncontrast technique limits evaluation. Coronary Artery Calcifications: Absent Lungs and Airways: Stable linear scarring in the lingular segment of the left upper lobe. Pleura:No pleural effusion. No pneumothorax. Upper Abdomen:Visualized portions of the upper abdominal viscera are unremarkable. Bones:Bone windows are unremarkable. CT/Low Dose CT Lung Screening IMPRESSION: 1. BASED ON THE ACR LUNG RADS FOR THE MOST SUSPICIOUS NODULE (IF ANY) DESCRIBE D IN THIS REPORT, THE OVERALL LUNG RADS SCORE IS 2.2 - BENIGN (BASED ON IMAGING FEATURES OR INDOLENT BEHAVIOR). RECOMMEND 12-TUE TH SCREENING LDCT.. 2. SMOKING CESSATION COUNSELING IS RECOMMENDED IF THE PATIENT IS STILL SMOKING . 3. OTHER SIGNIFICANT FINDINGSNone. One or more dose reduction techniques were used (e.g., Automated exposure contr ol, adjustment of the mA and/or kV according to patient size, use of iterative reconstruction technique). The following information is provided for reference:Lung-RADS 2021 Assessment C ategories. Additional information involving Lung-RADS is available at www.acr.org. 0-INCOMPLETE 1-NEGATIVE:No nodules or definitely benign nodules. Complete, central, popcorn , or centric ring calcifications OR fat containing 2-BENIGN APPEARANCE (based on imaging features or indolent behavior). Juxtaple ural nodule: < 10mm AND solid; smooth margins; oval, entiform, or triangular shape Solid nodule: <6mm at baseline or new< 4mm Part solid Nodule: < 6mm total mean diameter at baseline Nonsolid nodule:(GGN) < 30mm OR >=30mm stable or slowly growing Airway nodule, subsegmental at baseline, new, or stable Category 3 nodule stabl e or decreased in size at 6-month follow-up CT or Category 3 or 4A nodules that resolve on follow-up OR category 4B findings prov en to be benign following diagnotic work up. 3 - Probably Benign (Based on imaging features or behavior) Solid Nodule: >= 6 to <8mm at baseline OR new 4 to <6mm Part-solid nodule: >= 6mm toal mean diam. with solid component <6mm at baseline OR new < 6mm total mean diam. Non-solid nodule: GGN >= 30mm at baseline or new Atypical pulmonary cyst: Growing cystic component (mean diam.) of thick-walled cyst Category 4A nodule stable or decreased in size at 3-month follow-up CT (excl.ai rway). 4A - Suspicious Solid nodule: >=8 to < 15mm at baseline OR growing < 8mm OR new 6 to < 8mm Part solid nodule: >= 6mm total mean diam. w/ solid component >=6mm to < 8mm at baseline OR new or growing < 4mm solid component Airway nodule, segmental or more proximal at baseline or new Atypical pulmonary cyst: Thick-walled OR multilocular at baseline OR becomes mu ltilocular 4B - Very Suspicious Airway nodule, segmental or more proximal, and stable or growing Solid nodule: >= 15mm at baseline OR new or growing >= 8mm Part solid nodule: Solid component >= 8mm OR new or growing >= 4mm solid compon ent Atypical pulmonary cyst: Thick-walled with growing wall thickness/nodularity OR Growing multilocular (mean diam.) OR Multilocular with increased loculation or new/increased opacity Slow-growing solid or part solid nodule w/ growth over multiple screening exams 4X - Very Suspicious Category 3 or 4 nodules with additional features that increase the suspicion fo r lung cancer. S - Clinically Significant or potentially significant findings (non-lung cancer ) Reading Location: [id number]
== END | disposition home or self-care (01) ==
LOC: CT 12:53
PROVIDERS: PCP Family Medicine; Referring Provider Family Medicine; Visit Provider Family Medicine
DX: Z12.2 Encounter for screening for malignant neoplasm of respiratory organs (principal); F17.210 Nicotine dependence, cigarettes, uncomplicated
CPT/HCPCS: 71271

== ENCOUNTER 2024-04-11 11:20 | Emergency (ER) | payer MEDICARE, SELFPAY ==
[2024-04-11] VITALS (9 sets, daily range): BP systolic 122–167; BP diastolic 60–90; PULSE 84–113; RESP 13–17; TEMP 36.4; O2SAT 94–97; BMI 36.2
--- NOTE | 2024-04-11 11:43 | RAD_ITS ---
PROCEDURE: CHEST PA AND LATERAL REASON FOR EXAM: Chest pain and dizziness. TECHNIQUE: PA and lateral views were obtained. COMPARISON: Comparison is made with prior study dated August 22, 2023. FINDINGS: The heart is not enlarged. Stable mild increased markings at the lung bases suggestive of mild scarring. Hyperinflation. Degenerative changes of the dorsal spine. RAD/Chest PA and Lateral IMPRESSION: Stable mild scarring at the lung bases. Reading Location: [id number]
--- NOTE | 2024-04-11 11:43 | EKG12_ITS ---
Test Reason : CP Blood Pressure : */* mmHG Vent. Rate : 113 BPM Atrial Rate : 113 BPM P-R Int : 134 ms QRS Dur : 108 ms QT Int : 316 ms P-R-T Axes : 50 47 22 degrees QTcB Int : 433 ms Sinus tachycardia Otherwise normal ECG Confirmed by Wiley Levy ([id number]), editor book JODY BAINS ([id number]) on 04/12/2024 9:38:22 AM Referred By: AR/TB Confirmed By: Wiley Levy
[2024-04-11 11:59] LABS: Absolute Lymphocyte Count 2.27 X10^3/uL (0.83-4.51); Absolute Neutrophil Count 5.5 X10^3/uL (2.0-7.7); Basophil# 0.09 X10^3/uL; Eosinophil# 0.12 X10^3/uL; Eosinophils% 1.4 % (0-5); Hemoglobin 16.3 g/dL (12.0-15.0); Lymphocyte # 2.27 X10^3/ul (0.83-4.51); Lymphocyte % 25.9 % (19-41); Mean Corpuscular Hgb 29.4 pg (27.0-32.0); Mean Corpuscular Volume 86.5 fL (81-99); Mean Platelet Vol. 8.6 fl (6.2-12.0); NRBC Flagged by Analyzer 0 % (0-5); Neutrophil # 5.46 X10^3/uL (2.7-7.7); Neutrophil % 62.2 % (47-70); Platelet Count 315 K/mm3 (150-450); RBC Distribution Width CV 12.2 % (11.6-14.6); RBC Distribution Width SD 38.7 fl (35.1-43.9); Red Blood Count 5.55 M/mm3 (4.2-5.4); White Blood Count 8.8 K/mm3 (4.4-11.0)
[2024-04-11 12:40] LABS: Anion Gap 13 (5-15); BUN 13 mg/dL (4-19); BUN/Creat Ratio 17.4 RATIO (10-20); Calcium 9.4 mg/dL (7.6-11.0); Carbon Dioxide 23.5 mmol/L (22.0-29.0); Chloride 101 mmol/L (96-108); Creatinine, Serum 0.7 mg/dL (0.6-1.0); EST Glomerular Filtration Rate 96 (>60); Estimated Creatinine Clearance 90.14 ml/min; Glucose 174 mg/dL (70-99); Sodium Level 137 mmol/L (133-145); Troponin T High Sensitivity < 6 ng/L (<=14)
--- NOTE | 2024-04-11 14:24 | ED.VIS.CHEST ---
HPI History of Present Illness Chief Complaint: Chest Pain Narrative Narrative: Patient is a 59-year-old female with past medical history anxiety, hypertension who presents to the emergency department with a chief complaint of chest pressure. Patient states that her blood pressure has been elevated for 2 weeks and had been having some chest heaviness. Patient denies any recent travel history denies any history of blood clots. Patient states that originally she was on blood pressure medication for high blood pressure however notes that her primary care physician took her off as her blood pressure been normal. States the last 4 days she has been taking her medication. Patient states that nothing makes her chest pain better or worse. Patient states that her chest pain does not radiate anywhere is in the center of her chest. In triage note the patient states that she is dizzy and this is been going on for 2 weeks and states that she has had vertigo in the past. [facility] Medical History Acute bronchitis, unspecified Anxiety Kidney stones Spinal arthritis Home Medications ?Medication ?Instructions ?Recorded ?Last Taken ?Type pramipexole 1 mg tablet 0.5 mg PO QHS 12/08/21 Unknown History amlodipine 5 mg tablet 5 mg PO QDAY 08/22/23 Unknown History levofloxacin 500 mg tablet 500 mg PO DAILY #10 tabs 08/22/23 Unknown Rx sumatriptan succinate 100 mg tablet 100 mg PO PRN 08/22/23 Unknown History rabeprazole 20 mg tablet,delayed 20 mg PO Q24H 04/11/24 Unknown History release Allergy/AdvReac Type Severity Reaction Status Date / Time prednisone Allergy facial Verified 08/22/23 16:49 flushing shellfish derived Allergy Itching Verified 08/22/23 16:49 Family History no significant family his Surgical History History of cholecystectomy Social History household members: spouse Smoking Status: Current every day smoker tobacco type: cigarettes ROS ROS ED ROS Narrative Constitutional: Denies any fevers, chills, headaches, lightness, Eyes: Denies change in vision double vision blurry vision Cardiovascular: Complains of chest pressure as noted above denies palpitations Respiratory: Denies coughing wheezing shortness of breath Abdomen: Denies abdominal pain nausea vomit diarrhea : Denies any urinary symptoms Neurological: Denies numbness, weakness, tingling Musculoskeletal: Complains of chronic back pain states that this is not new Skin: Denies any rashes or lesions EXAM Physical Exam Narrative Exam Narrative: General: Patient was lying in bed rest comfortably did not appear to be in acute distress Head: Atraumatic, normocephalic Eyes: PERRL bilaterally, EOMI bilaterally, no conjunctival injection noted Neck: Soft, supple, trachea midline Cardiovascular: Regular in rhythm no murmurs gallops rubs noted Respiratory: Clear to auscultation bilaterally no rales rhonchi or wheezes noted Abdomen: Soft, nondistended, no tenderness palpation Extremities: +5/5 strength noted in the bilateral upper and lower extremities, radial pulse +2/4 in the bilateral extremities, no pedal edema on exam Neurological: Patient was following commands knew that the year is 2024 she was at [facility]. Patient completed finger-nose test bilaterally for difficulty NIH is [address] shows Skin: Warm, dry, intact no rashes or lesions noted Const Vital Signs: 04/11/24 11:20 04/11/24 12:20 04/11/24 13:00 Temperature 97.5 F L Temperature Source Temporal Pulse Rate 113 H 106 H Respiratory Rate 16 13 Blood Pressure 150/90 H 167/83 H 167/83 H Blood Pressure Mean 110 111 111 Pulse Ox 96 95 96 Oxygen Delivery Method Room Air Room Air Room Air 04/11/24 13:02 04/11/24 13:57 04/11/24 15:00 Temperature Temperature Source Pulse Rate 88 Respiratory Rate 17 Blood Pressure 138/76 H 142/62 H Blood Pressure Mean 96 88 Pulse Ox 96 96 Oxygen Delivery Method Room Air Room Air Room Air MDM MDM MDM Narrative Medical decision making narrative: Patient is a 59-year-old female who presented to the emergency department the chief complaint of chest pressure. On the differential diagnose includes but not limited to ACS, GERD, pneumonia, pneumothorax. Once workup is obtained reviewed she will be reevaluated. Patient CBC was reviewed showed no evidence leukocytosis white blood count normal 8.8, hemoglobin 16.3, plate count was noted be 315. Patient sodium normal 137, potassium normal at 4, creatinine normal at 0.7. Patient's troponin was less than 6, delta troponin pending. Patient's EKG reviewed by myself showed sinus tachycardia with a rate of 113 bpm. Patient's chest x-ray reviewed by myself by radiology which showed stable mild scarring at the lung bases. Given the patient's largely unremarkable workup we will add a D-dimer on. Patient's D-dimer was normal at 0.39. Patient case will be signed out to oncoming provider to follow-up on delta troponin and make ultimate disposition see her note for the details. Lab Data Labs: Laboratory Results - last 24 hr 04/11/24 11:31 WBC 8.8 RBC 5.55 H Hgb 16.3 H Hct 48.0 H MCV 86.5 MCH 29.4 MCHC 34.0 RDW Std Deviation 38.7 RDW Coeff of Rosalba 12.2 Plt Count 315 MPV 8.6 Immature Gran % (Auto) 1.500 H Neut % (Auto) 62.2 Lymph % (Auto) 25.9 Starr % (Auto) 8.0 Eos % (Auto) 1.4 Baso % (Auto) 1.0 Absolute Neuts (auto) 5.5 Absolute Lymphs (auto) 2.27 Nucleated RBC % 0 D-Dimer Quant (PE/DVT) 0.39 Sodium 137 Potassium 4.0 Chloride Direct 101 Carbon Dioxide 23.5 Anion Gap 13 BUN 13 Creatinine 0.7 Estim Creat Clear Calc 90.14 Est GFR (MDRD) Non-Af 96 BUN/Creatinine Ratio 17.4 Glucose 174 H Calcium 9.4 Troponin T High Sens < 6 Radiography Diagnostic Testing: Clinical Impression(s) from Imaging Studies Chest X-Ray 04/11/24 11:43 IMPRESSION: Stable mild scarring at the lung bases. Reading Location: [facility] Discharge Plan Triage Chief Complaint: Chest Pain ED Provider: Kenan Ruby Dx/Rx/DC Orders Clinical Impression: Chest pain Prescriptions: No Action sumatriptan succinate 100 mg tablet 100 mg PO PRN amlodipine 5 mg tablet 5 mg PO QDAY levofloxacin 500 mg tablet 500 mg PO DAILY Qty: 10 0RF pramipexole 1 mg tablet 0.5 mg PO QHS Patient Comments: TAKE 1/2 TO 1 TABLET BY MOUTH NIGHTLY rabeprazole 20 mg tablet,delayed release (DR/EC) 20 mg PO Q24H Primary Care Provider: Luke Meza Referrals: Luke Meza MD [Primary Care Provider] - Activity Restrictions/Additional Instructions: Follow-up your doctor in outpatient setting. Return with worse symptoms or any concerns. Keep a close eye and your blood pressure take your blood pressure medication that you are previously prescribed. Print Language: Croatian Disposition Disposition: Home, Self Care
[2024-04-11 15:09] LABS: D-Dimer Quantitative (DVT/PE) 0.39 FEU/ug/m (0.27-0.49)
--- NOTE | 2024-04-11 15:13 | ED.RN ---
Pt requesting something for a headache. Dr Ruby aware. No new orders at this time.
[2024-04-11 16:17] LABS: TROPONIN VARIANCE 2 HR UTC; Troponin T High Sens 2 HR < 6 ng/L (<=14)
[2024-04-11] MEDS: Acetaminophen 500 MG Tablet 1000 MG PO (16:19)
[2024-04-11 18:51] LABS: TROPONIN VARIANCE 4 HR UNABLE TO CALCULATE; Troponin T High Sens 4 HR 6 ng/L (<=14)
== END 2024-04-11 18:26 | disposition home or self-care (01) ==
PROVIDERS: Emergency Provider Emergency Medicine; PCP Family Medicine; Visit Provider Emergency Medicine
DX: R07.89 Other chest pain (principal); F17.210 Nicotine dependence, cigarettes, uncomplicated
CPT/HCPCS: 36415; 71046; 80048; 84484; 85025; 85379; 93005; 99283; A4216

== ENCOUNTER → 2024-05-01 | Outpatient (CLI) | payer MEDICARE, SELFPAY ==
--- NOTE | 2024-05-01 14:34 | RAD_ITS ---
EXAM: XR Bilateral Hips With Pelvis When Performed, 2 Views CLINICAL INDICATION: LEFT AND RIGHT HIP- LEG PAIN TECHNIQUE: Frontal view of the bilateral hips with pelvis when performed. COMPARISON: No relevant prior studies available. FINDINGS: BONES/JOINTS: Mild degenerative change of the hips, bilaterally. No acute fracture. No dislocation. SOFT TISSUES: Unremarkable. RAD/Hips B/L min 2 views w/ Pelvis IMPRESSION: Degenerative changes as above. Reading Location: [facility]
== END | disposition home or self-care (01) ==
LOC: MTRAD 14:32
PROVIDERS: PCP Family Medicine; Referring Provider Family Medicine; Visit Provider Family Medicine
DX: M25.551 Pain in right hip (principal); M25.552 Pain in left hip
CPT/HCPCS: 73521

== ENCOUNTER 2024-05-07 09:44 | Outpatient (RCR) | payer MEDICARE, SELFPAY ==
--- NOTE | 2024-05-07 10:48 | HP.PTEVAL ---
Patient's Visit Information Visit Information Visit Information: JOCELIN BEAN is a 59 year old F referred to Physical Therapy by Dr. Luke Meza MD with a diagnosis of Vertigo. Date of Evaluation: 05/07/24 Physical Therapist: Mer Bonilla, MPT Visit Plan Plan: Pt to go back to her Dr as we were unable to recreate her dizziness with B Hallpike, B Roll test, VOR (head and eyes move together), CATSIB. The only thing that made her a little dizzy was changing positions quickly like sitting to supine with head off the mat table and then sitting back up too fast. We were brainstorming....Asked pt about side effects of meds she is taking and she did not know. Could be BP related with quick change in positions??? Pt to go back to Dr as she said he mentioned checking brain next. Subjective Subjective: This has been going on for approx 6 weeks. When she gets up in the middle of the night and she sits up she has to sit for awhile. When she rolls over in bed in either direction she gets dizzy the room spins and it is less then 60 seconds usually. If she bends down she will kind of of spin and she will fall FW and hard to get her bearings. She is on a BP med and her BP kept shooting up and was dizzy and that is why she went to the ER. She has not taking her BP because she feels that she is ok. She is on disability for her failed back surgery and she is always in pain. Pt reports that the Dr wanted her to come to PT and see if we can help her and if not possibly a brain scan due to high cancer in her family. She has a lump in the back of her skull on Tuesday and has not told her Dr about it yet. Pain B Leg and hip pain: Pain Intensity (Out of 10): 5 Objective Objective: -B Hallpike for nystagmus. She had slight dizziness but lasted less than 10 seconds and worse on the L than the R. She also had some dizziness when we sat her back up to sitting both times. Seems to be that extreme position changes (sit to supine with head off the mat table and then supine to sit fast caused some dizziness)..... Asked Pt if side effect of BP med or if Dr changed her meds recently and she said she did not know. -B Roll test Pt is able to walk with horizontal and vertical head turns without LOB, dizziness, or veering. CATSIB 120/120 VOR head and eyes move together X 30 seconds horizontal with no dizziness Balance/Special Test Scores CATSIB Score (Max score 120 seconds): 120 Dizziness Score: 4 Rehabilitation Potential Rehabilitation Potential: Good Anticipated Interventions Text: Thank you for the opportunity to evaluate your patient. For Medicare and Medicare HMO plans, please review the plan of care and approve it. It will need to be FAXED BACK to us at [phone] for Medicare purposes. For Medicare only, by signing this I certify the plan of care. Please let me know if there are questions or concerns regarding this plan of care. Physician Signature: Date:
--- NOTE | 2024-05-07 10:48 | HP.PTDCSUM ---
Discharge Summary D/C summary: It has been my pleasure to treat JOCELIN BEAN referred by Dr. Luke Meza MD, with the diagnosis of Vertigo for a total of 1 visit(s). Discharge Date: 05/07/24 Please see the following information for a summary of their discharge status. Pain B Leg and hip pain: Pain Intensity (Out of 10): 5 Plan Plan: Pt to go back to her Dr as we were unable to recreate her dizziness with B Hallpike, B Roll test, VOR (head and eyes move together), CATSIB. The only thing that made her a little dizzy was changing positions quickly like sitting to supine with head off the mat table and then sitting back up too fast. We were brainstorming....Asked pt about side effects of meds she is taking and she did not know. Could be BP related with quick change in positions??? Pt to go back to as she said he mentioned checking brain next. D/C Information Discharge Comments: DC PT back to . d/c sentence: If there are questions or concerns regarding this patient's physical therapy, please feel free to call me at [phone]. Thank you for the referral of this patient. Sincerely, Mer Bonilla, MPT Balance/Gait/Functional tests Balance/Special Test Scores CATSIB Score (Max score 120 seconds): 120 Dizziness Score: 4
== END 2024-05-07 12:58 | disposition home or self-care (01) ==
LOC: PT 09:44
PROVIDERS: PCP Family Medicine; Referring Provider Family Medicine; Visit Provider Family Medicine
DX: R42 Dizziness and giddiness (principal)
CPT/HCPCS: 97161

== ENCOUNTER → 2024-06-05 | Outpatient (CLI) | payer MEDICARE, SELFPAY ==
--- NOTE | 2024-06-05 11:45 | BI_ITS ---
EXAM: SCRN MAMM (CAD)W/IRIS BILAT DATE: 06/05/2024 CLINICAL HISTORY: F, Age 59 y/o , SCREENING BREAST CANCER RISK ASSESSMENT: Has not been calculated. TECHNIQUE: Bilateral screening digital breast tomosynthesis with 2D and 3D images. Computer aided detection. COMPARISON: Prior exam(s) dated 10/14/2022. FINDINGS: TISSUE DENSITY: The breast tissue is composed of scattered area of fibroglandular density. Bilateral Breast Mammographic Findings: No suspicious masses, suspicious cluster of microcalcifications, architectural distortion or secondary sign of malignancy is identified in either breast. Benign round calcifications are seen in both breasts. A stable 3 mm isodense mass in the superior outer, far posterior aspect of the left breast is noted and is most compatible with an intramammary lymph node. BI/SCRN MAMM (CAD)W/IRIS BILAT IMPRESSION: OVERALL FINAL ASSESSMENT: BIRADS 2 BENIGN FINDING RECOMMENDATION: Routine annual follow-up in 1 Year A letter with findings and recommendations will be mailed to the patient. Reading Location: [id number]
== END | disposition home or self-care (01) ==
LOC: OPBI 11:41
PROVIDERS: PCP Family Medicine; Referring Provider Obstetrics & Gynecology; Visit Provider Obstetrics & Gynecology
DX: Z12.31 Encounter for screening mammogram for malignant neoplasm of breast (principal)
CPT/HCPCS: 77063; 77067

== ENCOUNTER → 2024-06-14 | Outpatient (CLI) | payer MEDICARE, SELFPAY ==
--- NOTE | 2024-06-14 10:23 | CT_ITS ---
PROCEDURE: CTA HEAD AND NECK W/ CONTRAST 06/14/2024 REASON FOR EXAM: DIZZINESS AND GIDDINESS TECHNIQUE: CTA imaging of the head and neck from the aortic arch to the skull vertex with out contrast and with intravenous contrast. Multiplanar and multisequence images were obtained. CONTRAST: Omnipaque 350 VOLUME: 100 mL Not Provided Gauge IV One or more dose reduction techniques were used (e.g., Automated exposure control, adjustment of the mA and/or kV according to patient size, use of iterative reconstruction technique). COMPARISON: None FINDINGS: Aortic Arch: Four-vessel arch branch anatomy. Left vertebral artery originates from the aortic arch. Brachiocephalic and Subclavians: Unremarkable RIGHT Carotid: Right CCA: Unremarkable. Right ICA: Unremarkable. Maximum stenosis (NASCET): 0 % Right ECA: Unremarkable. LEFT Carotid: Left CCA: Unremarkable. Left ICA: Unremarkable. Maximum stenosis (NASCET): 0 % Left ECA: Unremarkable. Vertebrals: Codominant. Arise from the subclavians. Both vertebrals form the basilar. RIGHT Vertebral: Unremarkable. LEFT Vertebral: Unremarkable. Anatomy: [place] of Bautista anatomy is normal. Aneurysm or avm: No intracranial aneurysms or large vascular malformations are identified. Anterior cerebral arteries: Unremarkable: Middle cerebral arteries: Unremarkable. Basilar artery: Unremarkable. Posterior cerebral arteries: Unremarkable. Other major branches of the posterior circulation: Unremarkable. Major venous structures: Unremarkable. Other findings: Neck: No lymphadenopathy. Lungs: Lung apices are clear. Bones: Bones are unremarkable. CT/CTA Head AND Neck W/ Contrast IMPRESSION: Patent anterior and posterior intracranial and extracranial circulation without hemodynamically significant stenosis. Reading [facility]
[2024-06-14 10:58] LABS: CREATININE FINGERSTICK < 1.0 mg/dL (0.55-1.02); EGFR FINGERSTICK > 60.0000 mL/min (>60)
== END | disposition home or self-care (01) ==
PROVIDERS: PCP Family Medicine; Referring Provider Family Medicine; Visit Provider Family Medicine
DX: R42 Dizziness and giddiness (principal)
CPT/HCPCS: 70496; 70498; Q9967

== ENCOUNTER → 2024-11-28 | Outpatient (CLI) | payer MEDICARE, SELFPAY ==
[2024-11-28 11:04] LABS: AST(SGOT) 68 U/L (<=31); Alanine Aminotransfer ALT/SGPT 73 U/L (<=34); Albumin, Serum 4.2 g/dL (3.5-5.0); Alkaline Phosphatase 90 U/L (35-104); Anion Gap 11 (5-15); BUN 9 mg/dL (4-19); BUN/Creat Ratio 13.0 RATIO (10-20); Calcium,Total 9.4 mg/dL (7.6-11.0); Carbon Dioxide 26.1 mmol/L (21.0-32.0); Chloride 102 mmol/L (98-108); Globulin 3.2 g/dL (2.2-4.2); Glucose 120 mg/dL (70-99); Potassium 4.0 mmol/L (3.3-5.1)
[2024-11-28 11:48] LABS: Amylase 84 U/L (28-100); Lipase 70 U/L (13-75)
== END | disposition home or self-care (01) ==
LOC: MTLAB 08:33
PROVIDERS: PCP Family Medicine; Referring Provider Family Medicine; Visit Provider Family Medicine
DX: K74.00 Hepatic fibrosis, unspecified (principal); Z79.899 Other long term (current) drug therapy
CPT/HCPCS: 36415; 80053; 82150; 83690; 84439; 84443

== ENCOUNTER → 2025-01-09 | Outpatient (CLI) | payer MEDICARE, SELFPAY ==
--- NOTE | 2025-01-09 10:12 | MRI_ITS ---
PROCEDURE: SPINE LUMBAR (ROUTINE) 01/09/2025 REASON FOR EXAM: BACK AND HIP PAIN BILATERAL TECHNIQUE: Procedure Code: MRISPL Modality: MR Procedure: SPINE LUMBAR (ROUTINE) COMPARISON: MRI lumbar spine 10/30/2022. FINDINGS: For the purposes of this report, the most caudal rectangular vertebral body will be designated L5. The next most caudal trapezoidal shaped vertebral body will be designated S1. The intervening disc at the lumbosacral angle is designated L5-S1. Prior bilateral laminectomies at L3, L4, and L5. The normal lumbar lordosis is maintained. The lumbar vertebral bodies are normal in height. The lumbar vertebral bodies are normal in alignment. No focal bone marrow replacing lesion. Multilevel disc desiccation. Intervertebral disc space height loss most prominent at L2-L3. There is no evidence of signal abnormality in the imaged distal spinal cord. The conus medullaris terminates at the level of T12-L1. T12-L1: Significant spinal canal stenosis or neural foraminal narrowing. L1-L2: No significant spinal canal stenosis or neural foraminal narrowing. L2-L3: Posterior osteophyte and bilateral facet arthrosis. No significant spinal canal stenosis. Moderate right and oaqo-ih-qbqrdavr left neural foraminal narrowing. Type 2 Modic endplate changes. L3-L4: Posterior disc osteophyte complex, bilateral facet arthrosis, and ligamentum flavum hypertrophy. No significant spinal canal stenosis. Lpqhuwap-rl-[id number] bilateral neural foraminal narrowing. L4-L5: Disc bulge, bilateral facet arthrosis, and ligamentum flavum hypertrophy. No significant spinal canal stenosis. Severe bilateral neural foraminal narrowing. L5-S1: Disc bulge, bilateral facet arthrosis, and ligamentum flavum hypertrophy. No significant spinal canal stenosis. No significant neural foraminal narrowing. Fatty atrophy of the posterior paraspinal muscles. MRI/Spine Lumbar (Routine) IMPRESSION: Prior laminectomies at L3, L4, and L5. Multilevel lumbar spondylosis without h igh-grade spinal canal stenosis most prominent at L4-L5 where there is severe bilateral neural foraminal stenosis. At L3-L4 ther e is yfrgwlhg-ej-[id number] bilateral neural foraminal stenosis. These findings are overall stable when compared to MRI of the lumbar spine dated 10/30/2022. Reading Location: [facility]
== END | disposition home or self-care (01) ==
PROVIDERS: PCP Family Medicine; Referring Provider Family Medicine; Visit Provider Family Medicine
DX: M54.50 Low back pain, unspecified (principal); M25.551 Pain in right hip; M25.552 Pain in left hip
CPT/HCPCS: 72148